=== PATIENT | male | born 1930 | race Caucasian/White ===

== ENCOUNTER 2018-06-18 12:22 | Emergency (ER) | payer MEDICARE, OTHER ==
--- NOTE | 2018-06-18 13:13 | ED Physician Documentation ---
PD HPI ALTERED MENTAL STATUS - Stated complaint Stated Complaint: VISIT PER DR REQUEST - Chief complaint Chief Complaint: General - History obtained from History obtained from: Patient, Family - History of Present Illness Timing - onset: Yesterday (he says he has been feeling okay and had routine blood tests done yesterday in preparation for PMD appt next week. He was called to come to the ER due to abnormalities of his labs. His daughter says the office nurse referenced elevated Creatinine and potassium and low blood count particularly.) Timing - details: Other (unknown progression of the changes, with last blood tests being in January thorugh PMD.) Quality / character: Other (daughter says he does seem to have general fatigue the past month or so.). No: Less responsive Associated symptoms: General weakness. No: Fever, Headache, Dyspnea, Focal weakness Contributing factors: Anticoagulated (due to atrial fib). No: New medication, Recent illness Basline status: Alert and oriented X 3, Ambulatory, Home (lives with his daughter and her ). No: Confused, Disoriented Similar symptoms before: Has not had sx before Recently seen: Not recently seen Review of Systems Constitutional: denies: Fever, Chills Nose: denies: Rhinorrhea / runny nose, Congestion Throat: denies: Sore throat Cardiac: reports: Pedal edema (mild chronically, no recent change). denies: Chest pain / pressure, Palpitations, Calf pain Respiratory: denies: Dyspnea, Cough GI: denies: Abdominal Pain, Vomiting, Diarrhea, Bloody / black stool : reports: Incontinent (at times). denies: Dysuria, Frequency Neurologic: reports: Generalized weakness (over several months). denies: Focal weakness, Numbness, Near syncope Endocrine: reports: Easy bruising / bleeding. denies: Weight loss Immunocompromised: denies: Immunocompromised PD PAST MEDICAL HISTORY - Past Medical History Past Medical History: Yes Cardiovascular: Hypertension, High cholesterol, Atrial fibrillation Respiratory: COPD Endocrine/Autoimmune: HyPOthyroidism GI: None : None Psych: None Musculoskeletal: None Derm: None - Past Surgical History Past Surgical History: Yes - Present Medications Home Medications: Ambulatory Orders Medication Instructions Recorded Confirmed Albuterol 2.5 mg INH Q4H PRN 06/18/18 06/18/18 Apixaban [Eliquis] 5 mg PO 06/18/18 Cyanocobalamin (Vitamin B-12) 06/18/18 [Cyanocobalamin Injection] Fluticasone/Salmeterol 06/18/18 [Fluticasone-Salmeterol 232-14] Folic Acid 06/18/18 Irbesartan/Hydrochlorothiazide 06/18/18 [Irbesartan-Hctz 300-12.5 mg Tb] Levothyroxine [Synthroid] 125 mcg PO QDAC 06/18/18 06/18/18 Metoprolol Succinate/Hctz 1 each PO 06/18/18 [Metoprolol ER-Hctz 50-12.5 mg] Sertraline [Zoloft] 06/18/18 Simvastatin 40 mg PO 06/18/18 Vit B2/Niacin/B-6/B-12/D-Panth [B 06/18/18 Complex Sublingual Liquid] - Allergies Allergies/Adverse Reactions: Allergies Allergy/AdvReac Type Severity Reaction Status Date / Time No Known Drug Allergies Allergy Verified 06/18/18 13:09 - Social History Does the pt smoke?: No Smoking Status: Never smoker Does the pt drink ETOH?: Yes ETOH Use: Wine Does the pt have substance abuse?: No - Immunizations Immunizations are current?: Yes - POLST Patient has POLST: No PD ED PE NORMAL - Vitals Vital signs reviewed: Yes - General General: Alert and oriented X 3, No acute distress, Well developed/nourished - HEENT HEENT: Moist mucous membranes, Pharynx benign - Neck Neck: Supple, no meningeal sign, No adenopathy - Cardiac Cardiac: No murmur. No: RRR (slightly irregular c/w atrial fib. Rate good, to slightly brandyn in 50s/60s.) - Respiratory Respiratory: Clear bilaterally - Abdomen Abdomen: Normal bowel sounds, Soft, Non tender, Non distended - Male Male : Deferred - Rectal Rectal: Other (soft brown stool in vault. Guiac negative. ) - Back Back: No CVA TTP - Derm Derm: Normal color, Warm and dry - Extremities Extremities: No tenderness to palpate, Normal ROM s pain, No calf tenderness / cord, Other (1+ edema in both lower legs.) - Neuro Neuro: Alert and oriented X 3, No motor deficit, Normal speech Results - Vitals Vitals: Vital Signs - 24 hr 06/18/18 06/18/18 12:28 16:42 Temperature 36.4 C L Heart Rate 64 57 L Respiratory 18 20 Rate Blood Pressure 139/47 H 154/76 H O2 Saturation 100 95 Oxygen O2 Source Room air - Labs Labs: Laboratory Tests 06/18/18 06/18/18 06/18/18 14:10 14:10 14:10 WBC 4.0 L RBC 2.70 L 2.71 L Hgb 8.8 L Hct 25.8 L MCV 95.7 H MCH 32.8 H MCHC 34.3 RDW 15.6 H Plt Count 164 MPV 7.9 Reticulocyte % (Auto) 4.00 H Neut # (Auto) 2.4 Lymph # (Auto) 0.9 L Wise # (Auto) 0.4 Eos # (Auto) 0.2 Baso # (Auto) 0.1 Absolute Nucleated RBC 0.00 Nucleated RBC % 0.1 Absolute Retic 0.109 Sodium 135 Potassium 5.0 Chloride 105 Carbon Dioxide 26 Anion Gap 4.0 L BUN 32 H Creatinine 1.4 H Estimated GFR (MDRD) 48 L Glucose 97 Calcium 8.8 Magnesium 2.0 Iron 70 TIBC 307 % Saturation 23 Transferrin 219 Ferritin Total Bilirubin 1.4 H AST 19 ALT 10 Alkaline Phosphatase 79 Total Protein 7.0 Albumin 4.1 Globulin 2.9 Albumin/Globulin Ratio 1.4 Lipase 51 Vitamin B12 Folate TSH Thyroxine (T4) Total T3 06/18/18 06/18/18 14:10 14:10 WBC RBC Hgb Hct MCV MCH MCHC RDW Plt Count MPV Reticulocyte % (Auto) Neut # (Auto) Lymph # (Auto) Wise # (Auto) Eos # (Auto) Baso # (Auto) Absolute Nucleated RBC Nucleated RBC % Absolute Retic Sodium Potassium Chloride Carbon Dioxide Anion Gap BUN Creatinine Estimated GFR (MDRD) Glucose Calcium Magnesium Iron TIBC % Saturation Transferrin Ferritin 213.7 Total Bilirubin AST ALT Alkaline Phosphatase Total Protein Albumin Globulin Albumin/Globulin Ratio Lipase Vitamin B12 204 Folate 44.00 TSH 47.80 H Thyroxine (T4) 4.13 L Total T3 0.45 L PD MEDICAL DECISION MAKING - ED course Complexity details: reviewed results, considered differential (patient's son-in-law able to pull up lab results on his phone, so could see trend of creatinine about 1-1.4 over 6 months. Hgb was 13 in November, 11 in January and now 9. He is guiac negative here. Gave daughter 5 guiac cards to get samples over the next week or so. Has low WBC as well as anemia, so may be marrow suppression. ), d/w patient Departure - Departure Disposition: 01 Home, Self Care Clinical Impression: Elevated serum creatinine Anemia Qualifiers: Anemia type: unspecified type Qualified Code(s): D64.9 - Anemia, unspecified Hypothyroidism Qualifiers: Hypothyroidism type: unspecified Qualified Code(s): E03.9 - Hypothyroidism, unspecified Condition: Stable Record reviewed to determine appropriate education?: Yes Instructions: ED Anemia Type Not Specified, ED Hypothyroidism Follow-Up: ZULEMA MCGRAW [Primary Care Provider] - Comments: You are anemic but not low enough to need transfusion. Your stool test was negative for blood at this time. Repeat the test 4-5 times over the next week or 2 and and bring those to your primary care to have him tested for occult blood. This is to see if there is any concern about losing blood. Otherwise the deficiency can be not making it appropriately. Your B12 and iron levels are good in your bloodstream. The folate test is still pending. Regarding your kidney function, make sure you stay well hydrated and drink lots of fluid through the day. Regarding your thyroid, the elevated TSH would suggest your thyroid dose is insufficient and will need to be increased to a higher amount. For now you could just take 2 of your thyroid tablets daily in the short-term until you see your primary care and they can prescribe a different dose. Follow-up with your primary care next week presumably. Discharge Date/Time: 06/18/18 16:48
[2018-06-18] MEDS: SODIUM CHLORIDE 0.9% 1,000 ML IV ONE (14:15)
[2018-06-18 14:19] LABS: BASOPHILS # (AUTO) 0.1 10^3/uL (0.0-0.1); BASOPHILS % (AUTO) 2.3 %; EOSINOPHILS # (AUTO) 0.2 10^3/uL (0.0-0.7); EOSINOPHILS % (AUTO) 6.2 %; HGB - HEMOGLOBIN 8.8 g/dL (14.0-18.0); LYMPHOCYTES # (AUTO) 0.9 10^3/uL (1.5-3.5); LYMPHOCYTES % (AUTO) 21.7 %; MEAN CORPUSCULAR HEMOGLOBIN 32.8 pg (27.0-31.0); MEAN CORPUSCULAR HGB CONC 34.3 g/dL (32.0-36.0); MEAN CORPUSCULAR VOLUME 95.7 fL (80.0-94.0); MEAN PLATELET VOLUME 7.9 fL (7.4-11.4); MONOCYTES # (AUTO) 0.4 10^3/uL (0.0-1.0); MONOCYTES % (AUTO) 9.2 %; NEUTROPHILS # (AUTO) 2.4 10^3/uL (1.5-6.6); NEUTROPHILS % (AUTO) 60.6 %; PLT - PLATELET COUNT 164 10^3/uL (130-450); RED CELL DISTRIBUTION WIDTH 15.6 % (12.0-15.0)
[2018-06-18 14:24] LABS: MEAN RETIC VALUE 115.1; RED BLOOD COUNT 2.71 10^6/uL (4.70-6.10)
[2018-06-18 14:54] LABS: FERRITIN 213.7 ng/mL (23.9-336.2)
[2018-06-18 15:41] LABS: ALBUMIN 4.1 g/dL (3.2-5.5); ALBUMIN/GLOBULIN RATIO 1.4 (1.0-2.2); BILIRUBIN,TOTAL 1.4 mg/dL (0.2-1.0); CALCIUM 8.8 mg/dL (8.5-10.3); CREATININE 1.4 mg/dL (0.6-1.2)
[2018-06-18 16:29] LABS: T4 (THYROXINE) 4.13 ug/dL (6.09-12.23)
[2018-06-18 16:38] LABS: TOTAL T3 0.45 ng/mL (0.87-1.78)
[2018-06-18 16:43] VITALS: BP 154/76
[2018-06-18 16:56] LABS: THYROID STIMULATING HORMONE 47.8 uIU/mL (0.34-5.60)
== END 2018-06-18 16:48 | disposition home or self-care (01) ==
LOC: ED 12:22
DX: R74.8 Abnormal levels of other serum enzymes (principal); D64.9 Anemia, unspecified; E03.9 Hypothyroidism, unspecified; I10 Essential (primary) hypertension; E78.00 Pure hypercholesterolemia, unspecified
CPT/HCPCS: 36415; 80053; 82607; 82728; 82746; 83540; 83690; 83735; 84436; 84443; 84466; 84480; 85025; 85044; 96360; 99283

== ENCOUNTER 2018-09-14 08:07 | Outpatient (CLI) | payer MEDICARE, OTHER | END 2018-09-14 08:08 | disposition critical access hospital (66) | LOC: EMS 08:07 | PROVIDERS: ATTEND Surgery | DX: R53.1 Weakness (principal); R26.2 Difficulty in walking, not elsewhere classified | CPT/HCPCS: A0425; A0427 ==

== ENCOUNTER 2018-09-14 08:33 | Inpatient (IN) | payer MEDICARE, OTHER ==
--- NOTE | 2018-09-14 08:54 | ED Physician Documentation ---
PD HPI Fall - Stated complaint Stated Complaint: FALL - Chief complaint Chief Complaint: General - History obtained from History obtained from: Patient - History of Present Illness Mechanism of injury: Unknown Fall distance: Sitting position Where injury occurred: Home Timing - onset: Today Injury(ies) location: Left Uppper Extremity Quality of pain: No: Pain, Throbbing Associated symptoms: Amnesia (does not remember the fall itself). No: LOC, AMS Symptoms improve with: Rest Worsens with: Movement, Palpation Contributing factors: Anticoagulated Similar symptoms before: Has not had sx before Recently seen: Not recently seen - Additional information Additional information: 88-year-old male with a history of atrial fibrillation on Eliquis has been found next to his bed this morning with an abrasion to his left forearm. The patient remembers being on the ground but he does not remember the fall itself. He denies any injury to his head he denies any pain to his head or neck. He denies any nausea or vomiting. He does state that he has a poor appetite but he thinks he drinks a fair amount of fluids. He feels mildly weak. He is a resident at [facility]. Review of Systems Constitutional: reports: Fatigue. denies: Fever, Chills Eyes: denies: Decreased vision Ears: denies: Ear pain Nose: denies: Rhinorrhea / runny nose, Congestion Throat: denies: Oral lesions / sores Cardiac: denies: Chest pain / pressure, Palpitations Respiratory: denies: Dyspnea, Cough GI: denies: Abdominal Pain, Nausea, Vomiting, Constipation, Diarrhea : denies: Dysuria, Frequency Skin: denies: Rash Musculoskeletal: reports: Extremity pain. denies: Neck pain, Back pain Neurologic: reports: Generalized weakness. denies: Focal weakness, Numbness PD PAST MEDICAL HISTORY - Past Medical History Cardiovascular: Hypertension, High cholesterol, Atrial fibrillation Respiratory: COPD Endocrine/Autoimmune: HyPOthyroidism GI: None : None Psych: None Musculoskeletal: None Derm: None - Past Surgical History Past Surgical History: Yes - Present Medications Home Medications: Ambulatory Orders Medication Instructions Recorded Confirmed Albuterol 2.5 mg INH Q4H PRN 06/18/18 09/14/18 Apixaban [Eliquis] 5 mg PO DAILY 06/18/18 09/14/18 Folic Acid 1 tab PO DAILY 06/18/18 09/14/18 Irbesartan/Hydrochlorothiazide 300 mg PO DAILY 06/18/18 09/14/18 [Irbesartan-Hctz 300-12.5 mg Tb] Levothyroxine [Synthroid] 125 mcg PO QDAC 06/18/18 09/14/18 Metoprolol Art/Hydrochlorothiaz 1 each PO BID 06/18/18 09/14/18 [Metoprolol ER-Hctz 50-12.5 mg] Sertraline [Zoloft] 1 tab DAILY 06/18/18 09/14/18 Simvastatin 40 mg PO DAILY 06/18/18 09/14/18 Vit B2/Niacin/B-6/B-12/D-Panth [B 1 cap DAILY 06/18/18 09/14/18 Complex Sublingual Liquid] Fluticasone/Salmeterol [Advair 1 puffs INH PRN PRN 09/14/18 09/14/18 500-50 Diskus] Hydrocortisone/Pramoxine 1 applic TOP BID 09/14/18 09/14/18 [Hydrocort-Pramoxine 2.5%-1% cm] - Allergies Allergies/Adverse Reactions: Allergies Allergy/AdvReac Type Severity Reaction Status Date / Time No Known Drug Allergies Allergy Verified 09/14/18 08:43 - Social History Does the pt smoke?: No Smoking Status: Never smoker Does the pt drink ETOH?: Yes Does the pt have substance abuse?: No - Immunizations Immunizations are current?: Yes - POLST Patient has POLST: No PD ED PE NORMAL - Vitals Vital signs reviewed: Yes (normal ) - General General: No acute distress, Well developed/nourished - HEENT HEENT: Atraumatic, PERRL, EOMI - Neck Neck: Supple, no meningeal sign, No bony TTP - Cardiac Cardiac: No murmur, Other (irregularly irregular ) - Respiratory Respiratory: No respiratory distress, Clear bilaterally - Abdomen Abdomen: Soft, Non tender - Back Back: No CVA TTP, No spinal TTP - Derm Derm: Normal color, Warm and dry, No rash - Extremities Extremities: No deformity, No edema, Other (There is a superficial skin tear to the left volar forearm that has abraided mulitple small skin flaps. There is no involvment of deeper structures and the distal n/v is intact. 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, No motor deficit, No sensory deficit, Normal speech Eye Opening: Spontaneous Motor: Obeys Commands Verbal: Oriented GCS Score: 15 - Psych Psych: Normal mood, Normal affect Results - Vitals Vitals: Vital Signs - 24 hr 09/14/18 09/14/18 09/14/18 08:38 10:47 12:03 Temperature 36.3 C L Heart Rate 55 L 85 94 Respiratory 20 20 14 Rate Blood Pressure 111/64 94/47 L O2 Saturation 98 95 95 Oxygen O2 Source Room air - EKG (time done) 0844 Rate: Rate (enter#) (114) Rhythm: Atrial fibrillation Ischemia: ST depression (diffuse) Compare to prior EKG: Old EKG unavailable Computer interpretation: Agree with computer - Labs Labs: Laboratory Tests 09/14/18 09/14/18 09/14/18 10:12 10:12 10:12 WBC 7.9 RBC 2.79 L Hgb 8.9 L Hct 26.1 L MCV 93.7 MCH 32.1 H MCHC 34.2 RDW 13.4 Plt Count 311 MPV 8.1 Neut # (Auto) 6.9 H Lymph # (Auto) 0.4 L Dawes # (Auto) 0.6 Eos # (Auto) 0.0 Baso # (Auto) 0.0 Absolute Nucleated RBC 0.00 Nucleated RBC % 0.0 Sodium 133 L Potassium 4.1 Chloride 103 Carbon Dioxide 18 L Anion Gap 12.0 BUN 99 H* Creatinine 3.9 H Estimated GFR (MDRD) 15 L Glucose 155 H Calcium 8.6 Total Bilirubin 1.1 H AST 29 ALT 25 Alkaline Phosphatase 71 Troponin I < 0.04 Total Protein 6.8 Albumin 3.4 Globulin 3.4 Albumin/Globulin Ratio 1.0 Lipase 26 Urine Color Urine Clarity Urine pH Ur Specific [place] Urine Protein Urine Glucose (UA) Urine Ketones Urine Occult Blood Urine Nitrite Urine Bilirubin Urine Urobilinogen Ur Leukocyte Esterase Ur Microscopic Review Urine Culture Comments 09/14/18 12:35 WBC RBC Hgb Hct MCV MCH MCHC RDW Plt Count MPV Neut # (Auto) Lymph # (Auto) Dawes # (Auto) Eos # (Auto) Baso # (Auto) Absolute Nucleated RBC Nucleated RBC % Sodium Potassium Chloride Carbon Dioxide Anion Gap BUN Creatinine Estimated GFR (MDRD) Glucose Calcium Total Bilirubin AST ALT Alkaline Phosphatase Troponin I Total Protein Albumin Globulin Albumin/Globulin Ratio Lipase Urine Color YELLOW Urine Clarity CLOUDY Urine pH 5.5 Ur Specific [place] 1.025 Urine Protein 100 H Urine Glucose (UA) NEGATIVE Urine Ketones NEGATIVE Urine Occult Blood MODERATE H Urine Nitrite NEGATIVE Urine Bilirubin NEGATIVE Urine Urobilinogen 0.2 (NORMAL) Ur Leukocyte Esterase LARGE H Ur Microscopic Review INDICATED Urine Culture Comments Not Reportable - Rads (name of study) head without Radiology: Prelim report reviewed (Impression: 1. No acute intracranial abnormality is identified. 2 No acute fracture. 3 Parenchymal volume loss and chronic white matter changes.), EMP read indepedently, See rad report Procedures - IVC sono (time) 0902 Bedside IVC sono: IVC measures (cm) (0.92), IVC collapsed c insp (cm) (complete ), Dehydration (est 2 liter deficit) PD MEDICAL DECISION MAKING - ED course Complexity details: reviewed results, re-evaluated patient, considered differential, d/w patient ED course: 88-year-old male with atrial fibrillation on Eliquis has been found at the edge of his bed this morning he does not recall the fall exactly he does not have any evidence of trauma to his head he does have some abrasion to his left forearm and he is found to be significantly dehydrated. He is administered a banana bag intravenously and a CT scan of his head was obtained. His diagnostics indicate significant dehydration with acute kidney injury and urinary tract infection. He has a long-standing anemia this is slightly worse. Departure - Departure Disposition: 66 [facility] DC/Xfer Clinical Impression: Dehydration, ARMIDA (acute kidney injury) Urinary tract infection Qualifiers: Urinary tract infection type: acute cystitis Hematuria presence: without hematuria Qualified Code(s): N30.00 - Acute cystitis without hematuria
[2018-09-14] MEDS ORDERED: FOLIC ACID INJ 1 MG, THIAMINE INJ 100 MG, MAGNESIUM SULFATE 2 GM, MULTIVITAMIN 10 ML in... IV STA ×5 (09:06)
--- NOTE | 2018-09-14 10:18 | CT Report ---
Reason: fall eliquis memory loss Procedure Date: 09/14/2018 Accession Number: [id number] / [id number] Procedure: CT - Head W/O CPT Code: FULL RESULT: EXAM: CT HEAD EXAM DATE: 09/14/2018 09:52 AM. CLINICAL HISTORY: Fall eliquis memory loss. COMPARISON: None. TECHNIQUE: Multiaxial CT images were obtained from the foramen magnum to the vertex. Reformats: Sagittal and coronal. IV contrast: None. In accordance with CT protocol optimization, one or more of the following dose reduction techniques were utilized for this exam: automated exposure control, adjustment of mA and/or KV based on patient size, or use of iterative reconstructive technique. FINDINGS: Parenchyma: No evidence of an acute vascular insult or acute parenchymal hemorrhage. No midline shift. No mass-effect. Parenchymal volume loss and periventricular regions of low attenuation. Extraaxial Spaces: Extra-axial spaces are prominent. No subdural or epidural collections identified. Ventricles: Mildly prominent although symmetric. No hydrocephalus. Sinuses and Orbits: Imaged paranasal sinuses, orbits, and mastoids show no significant abnormality. Bones: No evidence of fracture or calvarial defect. Other: Globes and orbits are unremarkable. Vascular calcifications are noted. IMPRESSION: 1. No acute intracranial abnormality is identified. 2. No acute fracture 3. Parenchymal volume loss and chronic white matter changes. RADIA
[2018-09-14 10:24] LABS: BASOPHILS % (AUTO) 0.3 %; EOSINOPHILS % (AUTO) 0.5 %; HGB - HEMOGLOBIN 8.9 g/dL (14.0-18.0); LYMPHOCYTES # (AUTO) 0.4 10^3/uL (1.5-3.5); MEAN CORPUSCULAR HEMOGLOBIN 32.1 pg (27.0-31.0); MEAN CORPUSCULAR HGB CONC 34.2 g/dL (32.0-36.0); MEAN CORPUSCULAR VOLUME 93.7 fL (80.0-94.0); MEAN PLATELET VOLUME 8.1 fL (7.4-11.4); MONOCYTES # (AUTO) 0.6 10^3/uL (0.0-1.0); MONOCYTES % (AUTO) 7.3 %; NEUTROPHILS # (AUTO) 6.9 10^3/uL (1.5-6.6); NEUTROPHILS % (AUTO) 86.9 %; PLT - PLATELET COUNT 311 10^3/uL (130-450); RED BLOOD COUNT 2.79 10^6/uL (4.70-6.10); RED CELL DISTRIBUTION WIDTH 13.4 % (12.0-15.0); WHITE BLOOD COUNT 7.9 x10^3/uL (4.8-10.8)
[2018-09-14 10:39] LABS: ALBUMIN 3.4 g/dL (3.2-5.5); BILIRUBIN,TOTAL 1.1 mg/dL (0.2-1.0); CALCIUM 8.6 mg/dL (8.5-10.3); CREATININE 3.9 mg/dL (0.6-1.2); TOTAL PROTEIN 6.8 g/dL (6.7-8.2)
[2018-09-14 12:49] LABS: BILIRUBIN,URINE NEGATIVE (NEGATIVE); GLUCOSE, URINE (UA) NEGATIVE (NEGATIVE); KETONES,URINE (UA) NEGATIVE (NEGATIVE); LEUKOCYTE ESTERASE, URINE LARGE (NEGATIVE); NITRITE,URINE NEGATIVE (NEGATIVE); OCCULT BLOOD,URINE MODERATE (NEGATIVE); PH,URINE 5.5 PH (5.0-7.5); PROTEIN,URINE 100 mg/dL (NEGATIVE); UROBILINOGEN,URINE 0.2 (NORMAL) E.U./dL (NORMAL)
[2018-09-14 12:51] LABS: CLARITY,URINE CLOUDY (CLEAR)
[2018-09-14 13:01] LABS: BACTERIA,URINE Few /HPF (None Seen); RBC,URINE 0-5 /HPF (0-5); SQUAMOUS EPITHELIAL CELL,UR RARE Squamous (<= Few)
[2018-09-14] MEDS ORDERED: BACITRACIN OINT TOP ONE (13:22)
[2018-09-14] MEDS ORDERED: ONDANSETRON 4 MG/2 ML VIAL IVP PRN (16:05)
[2018-09-14] MEDS ORDERED: TEMAZEPAM 15 MG CAPSULE PO PRN (16:05)
--- NOTE | 2018-09-14 16:11 | HISTORY & PHYSICAL EXAMINATION ---
Chief Complaint - Chief Complaint Chief Complaint: found down, weakness, diarrhea History of Present Illness - Admitted From Admitted From:: ED - History Obtained From Records Reviewed: yes History obtained from: chart review, [id number], patient Exam Limitations: AMS - History of Present Illness HPI Comment/Other: Bladimir Curtis Sr. is a 88-year-old male with a past medical history of hypertension, hyperlipidemia, hypothyroidism, atrial fibrillation on Eliquis, CHF, hearing loss, and dementia. He has been residing at [facility] assisted living since June of 2018. He has lost between 10 and 20lbs since arriving there despite the staff encouraging him to attend meals and them bringing him his meals to his apartment. He was found next to his bed this morning with an abrasion to his left forearm, so EMS was called and he was brought to the ED. Once in the ED the patient states that he remembers being on the ground, but he does not remember the fall itself. He denies any injury to his head, headaches, neck pain, nausea or vomiting. His hznnhgbs-sa-wro Gwendolyn is present for his H & P exam. She states that she tries to swing by [facility] after work each day and for the past 2-3 days his apartment has been a mess with diarrhea soiled depends in the sink, soiled carpeting, and the patient had been spending more and more time in bed with no motivation, lethargy, chills, and worsening mental status. Labs show a normal WBC count of 7.9, a low H/H of 8.9/26.1, a high neutrophil count, a low sodium of 133, an elevated BUN of 99, an elevated creatinine of 3.9, a bili of 1.1, a normal troponin, with no other lab abnormalities. A urine sample showed acute UTI with the culture pending. On exam, the patient is somewhat confused, a poor historian, had an ill appearance, and had bilateral CVA tenderness with palpation. He was attempting to use the urinal with poor results. He will be admitted inpatient for further treatment of pyelonephritis, treatment of ARMIDA using gentle fluids and a possible PT evaluation for placement. History - Past Medical History Cardiovascular: reports: Congestive heart failure, Hypertension, High cholesterol, Coronary artery disease, Peripheral Vascular Disease, Atrial fibrillation, Murmur, Arrhythmia Respiratory: reports: COPD, Shortness of breath Neuro: reports: Alzhiemer's, Dementia, CVA, Peripheral neuropathy, Tremors Endocrine/Autoimmune: reports: HyPOthyroidism GI: reports: GERD : reports: Benign prostate hypertrophy, Incontinence, Nocturia, Frequency HEENT: reports: Chronic vision loss, Chronic sinusitis, Chronic hearing loss Psych: reports: Depression, Anxiety Musculoskeletal: reports: Osteoarthritis, Osteoporosis Derm: reports: None MRSA Hx?: No - Family & Social History Family History: Mother: , Father: , COPD/Emphysema Living arrangement: Assisted living ([facility]-doing poorly there.) Social History Notes: 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 He had one son, one daughter and after loosing his 3 years ago, moved in with his son. This past June, he moved into [facility] assisted living. He has a smoking history of about 40 years, denies alcohol abuse, but recently would enjoy wine. He denies illicit drug use. He has a POLST on file with his PCP stating his wishes to be DNR with full treatment. - Substance History Use: Uses substance without health or social issues: NONE Abuse: Recurrent use of substance despite neg consequences: NONE Dependence: Experiences withdrawal or developed tolerances: NONE - POLST Patient has POLST: Yes POLST Status: DNR (POLST to be obtained from family.) Meds/Allgy - Home Medications Home Medications: Ambulatory Orders Medication Instructions Recorded Confirmed Apixaban [Eliquis] 5 mg PO DAILY 06/18/18 09/14/18 Folic Acid 1 mg PO DAILY 06/18/18 09/14/18 Simvastatin 40 mg PO QPM 06/18/18 09/14/18 Albuterol Sulfate [Albuterol 2 puffs INH Q6H PRN 09/14/18 09/14/18 Sulfate Hfa] Fluticasone/Salmeterol [Advair 1 puffs INH DAILY 09/14/18 09/14/18 500-50 Diskus] Irbesartan 300 mg PO DAILY 09/14/18 09/14/18 Levothyroxine Sodium 150 mcg PO QDAC 09/14/18 09/14/18 Metoprolol Succinate 50 mg PO BID 09/14/18 09/14/18 Sertraline HCl 25 mg PO DAILY 09/14/18 09/14/18 Vitamin B Complex 1 tab PO DAILY 09/14/18 09/14/18 dilTIAZem HCl [Diltiazem 24Hr Cd] 120 mg PO DAILY 09/14/18 09/14/18 - Allergies Allergies/Adverse Reactions: Allergies Allergy/AdvReac Type Severity Reaction Status Date / Time No Known Drug Allergies Allergy Verified 09/14/18 08:43 Review of Systems - Constitutional Constitutional: reports: Fatigue, Chills, Weakness, Poor appetite, Weight loss (10-20lbs in the past few months.) - Eyes Eyes: reports: Vision loss - Ears, Nose & Throat Ears, Nose & Throat: reports: Hearing loss, Hearing aids, Postnasal drainage, Sore throat - Cardiovascular Cariovascular: reports: Palpitations, Exertional dyspnea, Decr. exercise tolerance - Respiratory Respiratory: reports: Cough, SOB at rest, SOB with exertion - Gastrointestinal Gastrointestinal: reports: Abdominal pain, Diarrhea, Change in bowel habits, Nausea, Vomiting, Bloating, Poor appetite - Genitourinary Genitourinary: reports: Dysuria, Frequency, Incontinence, Nocturia - Musculoskeletal Musculoskeletal: reports: Back pain, Stiffness, Limited range of motion, Joint swelling - Integumentary Integumentary: reports: Dryness - Neurological Neurological: reports: General weakness, Focal weakness, Memory problems, Abnormal gait, Incoordination, Slurred speech - Psychiatric Psychiatric: reports: Depression, Anxiety - Endocrine Endocrine: reports: Intolerance to cold - Hematologic/Lymphatic Hematologic/Lymphatic: reports: Anemia, Recurrent infections - All Other Systems All Other Systems: reports: Reviewed and negative Prior Level of Functionality: Independent in assisted living, uses a walker. Recent falls, weight loss and i llness. Exam - Vital Signs Reviewed Vital Signs: Yes Vital Signs: Vital Signs x48h Temp Pulse Resp BP Pulse Ox 09/14/18 14:51 89 14 100/52 L 97 09/14/18 12:03 94 14 94/47 L 95 09/14/18 10:47 85 20 95 09/14/18 08:38 36.3 C L 55 L 20 111/64 98 - Physical Exam General Appearance: positive: No acute distress, Lethargic Eyes Bilateral: positive: Normal inspection, PERRL, No lid inflammation ENT: positive: Pharynx nml, Dry mucous membranes Neck: positive: Thyroid nml, No JVD, Trachea midline, Lymphadenopathy (R), Lymphadenopathy (L), Stiff neck Respiratory: positive: Chest non-tender, No respiratory distress, Rhonchi Cardiovascular: positive: No gallop, Irregularly irregular, Tachycardia, Systolic murmur, Decreased pulse(s) Peripheral Pulses: positive: 1+ Abdomen: positive: Non-tender, Nml bowel sounds, Guarding Back: positive: Nml inspection, CVA tenderness (R), CVA tenderness (L) Skin: positive: No rash, Warm, Dry, Pallor Extremities: positive: Non-tender, Full ROM, Nml appearance, No pedal edema, Joint swelling Neurologic/Psychiatric: positive: Disoriented to place, Disoriented to time, Weakness, Sensory loss, Slurred/abnml speech, Depressed mood/affect, Other (baseline moderate dementia) Reflexes: Bicep (R): 3+, Bicep (L): 3+ Sepsis Event Note (H) - Evaluation Current Stage of Sepsis: Ruled out Conclusion/Plan - Problem List (1) Pyelonephritis Conclusion/Plan: Patient was found down at [facility] for an unknown amount of time Injury to his left elbow, no head injury, back strain, mid-back tenderness on exam Confusion, fevers, chills, and fatigue for the past several days Witnessed dysuria, nocturia, and dehydration UA shows + infection Plan: Continue IV antibiotics, await final cultures (2) ARMIDA (acute kidney injury) Conclusion/Plan: BUN of 99 Creatinine of 3.9 Baseline creatinine of ~1.4 Plan: IV fluids, treat acute infection, avoid nephrotoxins, NSAIDS (3) Fall Conclusion/Plan: The patient had an unwitnessed fall at his assisted living prior to admission. As per his wgfvfhju-rh-dvj who checks on him almost daily, he has also had recurrent diarrhea, which has made a mess of his apartment. Plan: Fall precautions, PT/OT evaluations for higher level of care. Qualifiers: Encounter type: subsequent encounter Qualified Code(s): W19.XXXD - Unspecified fall, subsequent encounter (4) Acute metabolic encephalopathy Conclusion/Plan: The patient has had increased confusion, isolating behaviors for the past several days. Plan: Monitor mood, fall precautions. (5) Dehydration Conclusion/Plan: Based on labs, showing ARMIDA and the story of the patient being found down. Plan: Start gentle IV fluids, monitor labs. (6) Atrial fibrillation Conclusion/Plan: Takes Eliquis at assisted living Long standing atrial fibrillation Plan: Continue Eliquis, consider telemetry if indicated for hypotension, tachycardia on exam Qualifiers: Atrial fibrillation type: chronic Qualified Code(s): I48.2 - Chronic atrial fibrillation (7) senior living (current) use of anticoagulants Conclusion/Plan: The patient is prescribed Eliquis for his atrial fibrillation. He is anemic on admission, which hopefully due to chronic illness. Plan: Obtain an occult stool daily to evaluate for GI bleeding. Continue Eliquis until positive. (8) Normocytic anemia Conclusion/Plan: The patient is found to have a normal MCV, but H/H were low at 8.9/26.1. He has a pale appearance with recent illness including diarrhea. Plan: Iron studies, occult test stools, monitor labs, continue Eliquis until positive guiacs. (9) COPD (chronic obstructive pulmonary disease) Conclusion/Plan: The patient had been a smoker for greater than 40 years per family. He is prescribed Advair and Qvair at home, which will be continued here in similar forms. He has been on oxygen since admission. Plan: Continue respiratory care, offer oxygen, monitor vital signs. Qualifiers: Chronic bronchitis type: unspecified (10) Dementia Conclusion/Plan: The patient is quite pleasant on exam, but has been exhibiting evidence of dementia such as very poor short term memory, isolated behaviors, depression, poor appetite, weight loss, and loosing track of tasks easily. Imaging on admission show chronic white matter changes consistent with dementia. Plan: Offer Palliative care services, monitor for worsening mood or confusion. Qualifiers: Dementia type: unspecified type Dementia behavioral disturbance: without behavioral disturbance Qualified Code(s): F03.90 - Unspecified dementia without behavioral disturbance (11) Hypothyroidism Conclusion/Plan: The patient has had this disease for several years and takes a plentiful dose of Synthroid of 150 mcg at home daily. He has been lethargic lately, but this may have more to do with acute illness. I have no recent TSH. Plan: Obtain TSH, adjust med as needed. Qualifiers: Hypothyroidism type: unspecified Qualified Code(s): E03.9 - Hypothyroidism, unspecified - Lab Results Lab results reviewed: Yes Fish Bones: 09/15/18 05:46 09/15/18 05:46 - Diagnostic Imaging Results Diagnostic Imaging Results: positive: Final report reviewed Diagnostic Imaging Results Comments: EXAM: CT HEAD EXAM DATE: 09/14/2018 09:52 AM IMPRESSION: 1. No acute intracranial abnormality is identified. 2. No acute fracture 3. Parenchymal volume loss and chronic white matter changes. - EKG Results EKG Interpreted Independently: No Core Measures - Anticipated LOS I expect patient to be DC'd or transferred within 96 hours.: Yes - DVT/VTE - Prophylaxis VTE/DVT Device ordered at admit?: Yes VTE/DVT Prophylaxis med ordered at admit?: Yes - Stroke - Rehab Assessment Rehab services assessment to be ordered?: Yes - AMI - Statin at Admit Aspirin Prescribed on Admit: Yes
[2018-09-14] MEDS: SODIUM CHLORIDE 0.9% 1,000 ML IV SCH (17:50)
[2018-09-14] MEDS: SODIUM CHLORIDE FLUSH 0.9% 10 ML SYRINGE IVP SCH (17:57)
[2018-09-14] MEDS: ACETAMINOPHEN 325 MG TABLET PO PRN (18:32)
[2018-09-14] MEDS: cefTRIAXone 2 GM in SODIUM CHLORIDE 0.9% MINIBAG 100 ML IV SCH (20:05)
[2018-09-14] MEDS ORDERED: NON FORMULARY MED (Simvastatin [Simvastatin] 40 MG) PO SCH (21:00)
[2018-09-14] MEDS: METOPROLOL SUCCINATE 50 MG TABLET PO SCH (21:11)
[2018-09-14] MEDS: ATORVASTATIN 10 MG TABLET PO SCH (21:11)
[2018-09-14] MEDS: FAMOTIDINE 20 MG TABLET PO SCH (21:11)
[2018-09-15] MEDS: SODIUM CHLORIDE FLUSH 0.9% 10 ML SYRINGE IVP SCH ×5 (01:32→23:48)
[2018-09-15] MEDS: SODIUM CHLORIDE 0.9% 1,000 ML IV SCH ×2 (04:21→14:59)
[2018-09-15] MEDS: ACETAMINOPHEN 325 MG TABLET PO PRN ×3 (04:43→17:01)
[2018-09-15 05:55] LABS: BASOPHILS % (AUTO) 0.8 %; EOSINOPHILS # (AUTO) 0.2 10^3/uL (0.0-0.7); EOSINOPHILS % (AUTO) 3.8 %; HGB - HEMOGLOBIN 8.7 g/dL (14.0-18.0); LYMPHOCYTES # (AUTO) 0.5 10^3/uL (1.5-3.5); LYMPHOCYTES % (AUTO) 10.4 %; MEAN CORPUSCULAR HEMOGLOBIN 32.2 pg (27.0-31.0); MEAN CORPUSCULAR HGB CONC 34.2 g/dL (32.0-36.0); MEAN CORPUSCULAR VOLUME 94.2 fL (80.0-94.0); MEAN PLATELET VOLUME 7.9 fL (7.4-11.4); MONOCYTES # (AUTO) 0.4 10^3/uL (0.0-1.0); MONOCYTES % (AUTO) 8.9 %; NEUTROPHILS # (AUTO) 3.8 10^3/uL (1.5-6.6); NEUTROPHILS % (AUTO) 76.1 %; PLT - PLATELET COUNT 268 10^3/uL (130-450); RED CELL DISTRIBUTION WIDTH 13.3 % (12.0-15.0)
[2018-09-15 06:13] LABS: ALBUMIN 2.8 g/dL (3.2-5.5); ALBUMIN/GLOBULIN RATIO 0.9 (1.0-2.2); BILIRUBIN,TOTAL 1.2 mg/dL (0.2-1.0); CALCIUM 8.4 mg/dL (8.5-10.3); CREATININE 2.6 mg/dL (0.6-1.2); MAGNESIUM 2.4 mg/dL (1.7-2.8)
[2018-09-15] MEDS: LEVOTHYROXINE 75 MCG TABLET PO SCH (06:33)
[2018-09-15] MEDS ORDERED: ENOXAPARIN 30 MG/0.3 ML SYRINGE SUBQ SCH (09:00)
[2018-09-15] MEDS: diltiaZEM CD 120 MG CAPSULE PO SCH (09:47)
[2018-09-15] MEDS: FOLIC ACID 1 MG TABLET PO SCH (09:47)
[2018-09-15] MEDS: SERTRALINE 50 MG TABLET PO SCH (09:48)
[2018-09-15] MEDS: METOPROLOL SUCCINATE 50 MG TABLET PO SCH ×2 (09:48→20:26)
[2018-09-15] MEDS: POLYETHYLENE GLYCOL 3350 17 GM PACKET PO SCH (09:51)
[2018-09-15] MEDS: APIXABAN 5 MG TABLET PO SCH (09:51)
[2018-09-15] MEDS: (Vitamin B Complex [Vitamin B Complex] 1 TAB) PO SCH (10:09)
[2018-09-15] MEDS: HYDROcod/ACETAM 5/325 MG TABLET PO PRN ×2 (14:57→20:26)
--- NOTE | 2018-09-15 16:31 | PROVIDER PROGRESS NOTE ---
Subjective - Prog Note Date Prog Note Date: 09/15/18 Prog Note Time: 12:00 - Subjective Pt reports feeling: Improved Subjective: Bladimir has no complaints, but when asked how his breathing is, he admits to some increased efforts. He denies chest pain, nausea, vomiting, a rash, headaches, problems with urination, or a new cough. Current Medications - Current Medications Current Medications: Active Medications: Acetaminophen (Tylenol) 650 mg PO Q4HR PRN Hydrocodone Bitart/Acetaminophen ([place] 5/325) 1 tab PO Q4HR PRN Apixaban (Eliquis) 5 mg PO DAILY MOY Atorvastatin Calcium (Lipitor) 20 mg PO QPM MOY Diltiazem HCl (Cardizem Cd) 120 mg PO DAILY MOY Famotidine (Pepcid) 20 mg PO QPM MOY Folic Acid () 1 mg PO DAILY MOY Ceftriaxone Sodium 2 gm/ (Sodium Chloride) 100 mls @ 200 mls/hr IV Q24H MYO Levothyroxine Sodium (Synthroid) 150 mcg PO QDAC MOY Metoprolol Succinate (Toprol Xl) 50 mg PO BID MOY Ondansetron HCl (Zofran Inj) 4 mg IVP Q6HR PRN (Vitamin B Complex [ Vitamin B Complex] 1 Tab) 1 each PO DAILY MOY Polyethylene Glycol (Miralax) 17 gm PO DAILY MOY Sertraline HCl (Zoloft) 25 mg PO DAILY MOY Temazepam (Restoril) 15 mg PO QPM PRN HOME meds: Apixaban [Eliquis] 5 mg PO DAILY 06/18/18 Folic Acid 1 mg PO DAILY 06/18/18 Simvastatin 40 mg PO QPM 06/18/18 Albuterol Sulfate [Albuterol Sulfate Hfa] 2 puffs INH Q6H PRN 09/14/18 Fluticasone/Salmeterol [Advair 500-50 Diskus] 1 puffs INH DAILY 09/14/18 Irbesartan 300 mg PO DAILY 09/14/18 Levothyroxine Sodium 150 mcg PO QDAC 09/14/18 Metoprolol Succinate 50 mg PO BID 09/14/18 Sertraline HCl 25 mg PO DAILY 09/14/18 Vitamin B Complex 1 tab PO DAILY 09/14/18 dilTIAZem HCl [Diltiazem 24Hr Cd] 120 mg PO DAILY 09/14/18 Objective - Vital Signs/Intake & Output Reviewed Vital Signs: Yes Vital Signs: Vital Signs x48h Temp Pulse Resp BP Pulse Ox 09/15/18 16:00 36.4 C L 86 18 105/46 L 97 09/15/18 09:46 78 122/66 Intake & Output: Intake & Output 09/12/18 09/13/18 09/14/18 09/15/18 23:59 23:59 23:59 23:59 Intake Total 1515.2 3120 Output Total 245 575 Balance 1270.2 2545 - Objective General Appearance: positive: No acute distress, Lethargic Eyes Bilateral: positive: PERRL Eyes: OU Conjunctivae pale ENT: positive: ENT inspection nml, Dry mucous membranes Neck: positive: Thyroid nml, No JVD, Trachea midline Respiratory: positive: Chest non-tender, No respiratory distress, Rhonchi Cardiovascular: positive: Regular rate & rhythm, No gallop, Tachycardia, Systolic murmur Peripheral Pulses: 1+ Radial (R), 1+ Radial (L) Abdomen: positive: Non-tender, Nml bowel sounds Back: positive: Nml inspection, CVA tenderness (R), CVA tenderness (L) Skin: positive: No rash, Warm, Dry, Pallor Extremities: positive: Non-tender, Full ROM, Nml appearance, No pedal edema Neurologic/Psychiatric: positive: Disoriented to time, Weakness, Sensory loss, Slurred/abnml speech, Depressed mood/affect, Other (baseline dementia) Reflexes: Bicep (R): 3+, Bicep (L): 3+ - Lab Results Fish Bones: 09/15/18 05:46 09/15/18 05:46 Other Labs: Lab Results x24hrs 09/15/18 09/15/18 09/15/18 Range/Units 05:46 05:46 05:46 WBC (4.8-10.8) x10^3/uL RBC (4.70-6.10) 10^6/uL Hgb (14.0-18.0) g/dL Hct (42.0-52.0) % MCV (80.0-94.0) fL MCH (27.0-31.0) pg MCHC (32.0-36.0) g/dL RDW (12.0-15.0) % Plt Count (130-450) 10^3/uL MPV (7.4-11.4) fL Neut # (Auto) (1.5-6.6) 10^3/uL Lymph # (Auto) (1.5-3.5) 10^3/uL [place] # (Auto) (0.0-1.0) 10^3/uL Eos # (Auto) (0.0-0.7) 10^3/uL Baso # (Auto) (0.0-0.1) 10^3/uL Absolute Nucleated RBC x10^3/uL Nucleated RBC % /100WBC Sodium 135 (135-145) mmol/L Potassium 3.9 (3.5-5.0) mmol/L Chloride 106 (101-111) mmol/L Carbon Dioxide 20 L (21-32) mmol/L Anion Gap 9.0 (6-13) BUN 82 H* (6-20) mg/dL Creatinine 2.6 H (0.6-1.2) mg/dL Estimated GFR (MDRD) 23 L (>89) Glucose 97 (70-100) mg/dL Lactic Acid 0.9 (0.5-2.2) mmol/L Calcium 8.4 L (8.5-10.3) mg/dL Phosphorus 3.0 (2.5-4.6) mg/dL Magnesium 2.4 (1.7-2.8) mg/dL Total Bilirubin 1.2 H (0.2-1.0) mg/dL AST 19 (10-42) IU/L ALT 20 (10-60) IU/L Alkaline Phosphatase 64 (42-121) IU/L Total Creatine Kinase 38 (22-269) IU/L B-Natriuretic Peptide 727 H (5-100) pg/mL Total Protein 6.0 L (6.7-8.2) g/dL Albumin 2.8 L (3.2-5.5) g/dL Globulin 3.2 (2.1-4.2) g/dL Albumin/Globulin Ratio 0.9 L (1.0-2.2) 09/15/18 Range/Units 05:46 WBC 5.0 (4.8-10.8) x10^3/uL RBC 2.70 L (4.70-6.10) 10^6/uL Hgb 8.7 L (14.0-18.0) g/dL Hct 25.5 L (42.0-52.0) % MCV 94.2 H (80.0-94.0) fL MCH 32.2 H (27.0-31.0) pg MCHC 34.2 (32.0-36.0) g/dL RDW 13.3 (12.0-15.0) % Plt Count 268 (130-450) 10^3/uL MPV 7.9 (7.4-11.4) fL Neut # (Auto) 3.8 (1.5-6.6) 10^3/uL Lymph # (Auto) 0.5 L (1.5-3.5) 10^3/uL [place] # (Auto) 0.4 (0.0-1.0) 10^3/uL Eos # (Auto) 0.2 (0.0-0.7) 10^3/uL Baso # (Auto) 0.0 (0.0-0.1) 10^3/uL Absolute Nucleated RBC 0.00 x10^3/uL Nucleated RBC % 0.0 /100WBC Sodium (135-145) mmol/L Potassium (3.5-5.0) mmol/L Chloride (101-111) mmol/L Carbon Dioxide (21-32) mmol/L Anion Gap (6-13) BUN (6-20) mg/dL Creatinine (0.6-1.2) mg/dL Estimated GFR (MDRD) (>89) Glucose (70-100) mg/dL Lactic Acid (0.5-2.2) mmol/L Calcium (8.5-10.3) mg/dL Phosphorus (2.5-4.6) mg/dL Magnesium (1.7-2.8) mg/dL Total Bilirubin (0.2-1.0) mg/dL AST (10-42) IU/L ALT (10-60) IU/L Alkaline Phosphatase (42-121) IU/L Total Creatine Kinase (22-269) IU/L B-Natriuretic Peptide (5-100) pg/mL Total Protein (6.7-8.2) g/dL Albumin (3.2-5.5) g/dL Globulin (2.1-4.2) g/dL Albumin/Globulin Ratio (1.0-2.2) ABX Reporting Has patient been on IV antibiotics over the past 48 hours?: Yes Sepsis Event Note (H) - Evaluation Current Stage of Sepsis: Ruled out Assessment/Plan - Problem List (1) Pyelonephritis Impression: Patient was found down at [facility] for an unknown amount of time Injury to his left elbow, no head injury, back strain, mid-back tenderness on exam. Head imaging was negative for injury. Confusion, fevers, chills, and fatigue for the past several days Dysuria, nocturia, and dehydration, now improved after fluids. UA shows + infection, final is pending. He is urinating ok. Plan: Continue IV antibiotics, await final cultures and kidney US results. (2) ARMIDA (acute kidney injury) Impression: BUN of 99, now 82. Creatinine of 3.9 on admission, now 2.6. Baseline creatinine of ~1.4. He has been given IV fluids. Plan: IV fluids, treat acute infection, avoid nephrotoxins, NSAIDS (3) Fall Impression: The patient had an unwitnessed fall at his assisted living prior to admission. As per his [id number]-mv-[id number] who checks on him almost daily, he has also had recurrent diarrhea, which has made a mess of his apartment. Plan: Fall precautions, PT/OT evaluations for higher level of care. Qualifiers: Encounter type: subsequent encounter Qualified Code(s): W19.XXXD - Unspecified fall, subsequent encounter (4) Acute metabolic encephalopathy Impression: The patient has had increased confusion, isolating behaviors for the past several days. Slight improvement in his mentation today. Plan: Monitor mood, fall precautions, PT evaluation tomorrow. (5) Dehydration Impression: Based on labs, showing ARMIDA and the story of the patient being found down. Plan: Stop IV fluids for early fluid overload, monitor labs. (6) Atrial fibrillation Impression: Takes Eliquis at [facility] Long standing atrial fibrillation Plan: Continue Eliquis, consider telemetry if indicated for hypotension, tachycardia on exam Qualifiers: Atrial fibrillation type: chronic Qualified Code(s): I48.2 - Chronic atrial fibrillation (7) [employer] (current) use of anticoagulants Impression: The patient is prescribed Eliquis for his atrial fibrillation. He is anemic on admission, which hopefully due to chronic illness. Plan: Obtain an occult stool daily to evaluate for GI bleeding. Continue Eliquis until positive. (8) COPD (chronic obstructive pulmonary disease) Impression: The patient had been a smoker for greater than 40 years per family. He is prescribed Advair and Qvair at home, which will be continued here in similar forms. He has been on oxygen since admission. Today he admits to slight increased work of breathing, so his IV fluids are on hold. Plan: Continue respiratory care, offer oxygen, monitor vital signs. Qualifiers: Chronic bronchitis type: unspecified (9) Normocytic anemia Impression: The patient is found to have a normal MCV, but H/H were low at 8.9/26.1, now 8.7/25.5 with an elevated MCV. He has a pale appearance with recent illness including diarrhea. Plan: Iron studies, occult test stools, monitor labs, continue Eliquis until positive guiacs. (10) Dementia Impression: The patient is quite pleasant on exam, but has been exhibiting evidence of dementia such as very poor short term memory, isolated behaviors, depression, poor appetite, weight loss, and loosing track of tasks easily. Imaging on admission show chronic white matter changes consistent with dementia. Plan: Offer Palliative care services, monitor for worsening mood or confusion. Qualifiers: Dementia type: unspecified type Dementia behavioral disturbance: without behavioral disturbance Qualified Code(s): F03.90 - Unspecified dementia without behavioral disturbance (11) Hypothyroidism Impression: The patient has had this disease for several years and takes a plentiful dose of Synthroid of 150 mcg at home daily. He has been lethargic lately, but this may have more to do with acute illness. TSH today was normal at 3.24. Plan: Continue daily Synthroid. Qualifiers: Hypothyroidism type: unspecified Qualified Code(s): E03.9 - Hypothyroidism, unspecified
[2018-09-15] MEDS: cefTRIAXone 2 GM in SODIUM CHLORIDE 0.9% MINIBAG 100 ML IV SCH (20:25)
[2018-09-15] MEDS: FAMOTIDINE 20 MG TABLET PO SCH (20:26)
[2018-09-15] MEDS: ATORVASTATIN 10 MG TABLET PO SCH (20:26)
--- NOTE | 2018-09-15 23:42 | Ultrasound Report ---
Reason: pyelonephritis, back pain, BPH Procedure Date: 09/15/2018 Accession Number: [id number] / [id number] Procedure: US - Retroperitoneal CPT Code: FULL RESULT: EXAM: RENAL ULTRASOUND EXAM DATE: 09/15/2018 11:04 PM. CLINICAL HISTORY: Pyelonephritis, back pain, BPH. COMPARISON: None. TECHNIQUE: Real-time scanning was performed with static images obtained. FINDINGS: Right Kidney: 10.2 x 6.7 x 6.0 cm. 7 cm cortical cyst. No hydronephrosis or definite shadowing calculus. Left Kidney: 11.5 x 7.0 x 7.0 cm. Severe hydronephrosis and hydroureter. Bladder: Markedly thickened bladder wall. Cowan catheter in the urinary bladder. Ureteral jets not visualized. Other: None. IMPRESSION: Severe left hydronephrosis and hydroureter. Markedly thickened bladder wall. No right hydronephrosis. RADIA
[2018-09-16] MEDS: HYDROcod/ACETAM 5/325 MG TABLET PO PRN (06:12)
[2018-09-16] MEDS: LEVOTHYROXINE 75 MCG TABLET PO SCH (06:12)
--- NOTE | 2018-09-16 07:04 | PROVIDER PROGRESS NOTE ---
Subjective - Prog Note Date Prog Note Date: 09/16/18 Prog Note Time: 07:04 - Subjective Pt reports feeling: Improved Subjective: Bladimir has no complaints to day and is relieved to have his catheter since he was unable to urinate overnight. He denies any new symptoms such as chest pain, chest pressure, shortness of breath, nausea, vomiting, a rash, dizziness or a new cough. Current Medications - Current Medications Current Medications: Active Medications: Acetaminophen (Tylenol) 650 mg PO Q4HR PRN Hydrocodone Bitart/Acetaminophen ([place] 5/325) 1 tab PO Q4HR PRN Apixaban (Eliquis) 5 mg PO DAILY MOY Atorvastatin Calcium (Lipitor) 20 mg PO QPM MOY Diltiazem HCl (Cardizem Cd) 120 mg PO DAILY MOY Famotidine (Pepcid) 20 mg PO QPM MOY Folic Acid () 1 mg PO DAILY MOY Trimethoprim/Sulfamethoxazole (20 ml/ Dextrose) 520 mls @ 346.667 mls/hr IV Q12H MOY Levothyroxine Sodium (Synthroid) 150 mcg PO QDAC MOY Metoprolol Succinate (Toprol Xl) 50 mg PO BID MOY Ondansetron HCl (Zofran Inj) 4 mg IVP Q6HR PRN (Vitamin B Complex [ Vitamin B Complex] 1 Tab) 1 each PO DAILY MOY Polyethylene Glycol (Miralax) 17 gm PO DAILY MOY Sertraline HCl (Zoloft) 25 mg PO DAILY MOY Temazepam (Restoril) 15 mg PO QPM PRN HOME meds: Apixaban [Eliquis] 5 mg PO DAILY 06/18/18 Folic Acid 1 mg PO DAILY 06/18/18 Simvastatin 40 mg PO QPM 06/18/18 Albuterol Sulfate [Albuterol Sulfate Hfa] 2 puffs INH Q6H PRN 09/14/18 Fluticasone/Salmeterol [Advair 500-50 Diskus] 1 puffs INH DAILY 09/14/18 Irbesartan 300 mg PO DAILY 09/14/18 Levothyroxine Sodium 150 mcg PO QDAC 09/14/18 Metoprolol Succinate 50 mg PO BID 09/14/18 Sertraline HCl 25 mg PO DAILY 09/14/18 Vitamin B Complex 1 tab PO DAILY 09/14/18 dilTIAZem HCl [Diltiazem 24Hr Cd] 120 mg PO DAILY 09/14/18 Objective - Vital Signs/Intake & Output Reviewed Vital Signs: Yes Vital Signs: Vital Signs x48h Temp Pulse Resp BP Pulse Ox 09/15/18 23:36 36.2 C L 69 16 97/48 L 96 Intake & Output: Intake & Output 09/13/18 09/14/18 09/15/18 09/16/18 23:59 23:59 23:59 23:59 Intake Total 1515.2 4278.333 150 Output Total 245 1655 450 Balance 1270.2 2623.333 -300 - Objective General Appearance: positive: No acute distress, Alert Eyes Bilateral: positive: PERRL Eyes: OU Conjunctivae pale ENT: positive: Pharynx nml, No signs of dehydration Neck: positive: Thyroid nml, No JVD, Trachea midline Respiratory: positive: Chest non-tender, No respiratory distress, Breath sounds nml Cardiovascular: positive: No gallop, Irregularly irregular, Systolic murmur, Decreased pulse(s) Peripheral Pulses: 1+ Radial (R), 1+ Radial (L) Abdomen: positive: Non-tender, Nml bowel sounds, No distention Back: positive: Nml inspection Skin: positive: No rash, Warm, Dry, Pallor Extremities: positive: Non-tender, Full ROM, Nml appearance, No pedal edema Neurologic/Psychiatric: positive: Disoriented to time, Weakness, Sensory loss, Depressed mood/affect, Other (baseline dementia) Reflexes: Bicep (R): 3+, Bicep (L): 3+ - Lab Results Fish Bones: 09/16/18 07:24 09/16/18 07:24 ABX Reporting Has patient been on IV antibiotics over the past 48 hours?: Yes Sepsis Event Note (H) - Evaluation Current Stage of Sepsis: Ruled out Assessment/Plan - Problem List (1) Pyelonephritis Impression: Patient was found down at [place] for an unknown amount of time, next to his bed with the only reported injury being his left elbow. There was no head injury, back strain, mid-back tenderness on exam. Head imaging was negative for acute injury or bleeding. He has been having increased confusion, fevers, chills, and fatigue for the past several days, leading up to this admission. Dysuria, nocturia, and dehydration, now improved after fluids. UA shows + infection, final culture results show enterococcus faecalis with a few sensitivities. His antibiotics have been changed to TMP/sulfa IV for absorption purposes. He was found to have urinary retention overnight, so an indwelling logan was inserted. Plan: Continue IV antibiotics, continue logan. (2) Urinary retention Impression: Overnight the patient was unable to urinate, so an indwelling logan was placed. Since he has had an improvement in his kidney function, I will start flomax to be continued out patient for improved bladder emptying. Plan: Continue logan, start flomax. (3) ARMIDA (acute kidney injury) Impression: BUN is improved to 60 today. Creatinine of 3.9 on admission, now 1.8. Baseline creatinine of ~1.4. He has been given IV fluids, but due to increased pulmonary congestion, these were stopped late yesterday. Plan: Continue to treat acute infection, avoid nephrotoxins, NSAIDS (4) Fall Impression: The patient had an unwitnessed fall at his assisted living prior to admission. As per his [id number] who checks on him almost daily, he has also had recurrent diarrhea, which has made a mess of his apartment. Plan: Fall precautions, PT/OT evaluations for higher level of care. Qualifiers: Encounter type: subsequent encounter Qualified Code(s): W19.XXXD - Unspecified fall, subsequent encounter (5) Acute metabolic encephalopathy Impression: The patient has had increased confusion, isolating behaviors for the past several days leading up to this admission. He has improved mentation with more alert periods each day. He has not been combative or impulsive. Plan: Monitor mood, fall precautions, PT evaluation still to come. (6) Dehydration Impression: Based on labs, showing ARMIDA and the story of the patient being found down. Kidney function is much improved, and the patient has an indwelling logan since having urinary retention overnight. Plan: Hold IV fluids for early fluid overload, treat acute illness, and routine labs. (7) Atrial fibrillation Impression: Takes Eliquis at assisted living which has been continued here. Long standing atrial fibrillation has been treated with metoprolol and diltiazem, which is continued here with B/P and heart rate parameters. Heart rates today have been 70's, blood pressures a little light at 101/48. Plan: Continue Eliquis, and rate control meds. Qualifiers: Atrial fibrillation type: chronic Qualified Code(s): I48.2 - Chronic atrial fibrillation (8) long-term (current) use of anticoagulants Impression: The patient is prescribed Eliquis for his atrial fibrillation. He is anemic on admission, that is improved today so this may have been from IV fluids. Plan: Obtain an occult stool to evaluate for GI bleeding. Continue Eliquis until positive. (9) COPD (chronic obstructive pulmonary disease) Impression: The patient had been a smoker for greater than 40 years per family. He is prescribed Advair and Qvair at home, which will be continued here in similar forms. He has been on oxygen since admission. Today he no longer complains of increased work of breathing and his IV fluids are still on hold. Plan: Continue respiratory care, offer oxygen, monitor vital signs. Qualifiers: Chronic bronchitis type: unspecified (10) Normocytic anemia Impression: The patient is found to have a normal MCV, but H/H were low at 8.9/26.1, now 8.7/25.5 with an elevated MCV. He has a pale appearance with recent illness including diarrhea. Today, H/H are much improved to 9.3/27.3. Plan: Iron studies, occult test stools, monitor labs, continue Eliquis until positive guiacs. (11) Dementia Impression: The patient is quite pleasant on exam, but has been exhibiting evidence of dementia such as very poor short term memory, isolated behaviors, depression, poor appetite, weight loss, and loosing track of tasks easily. Imaging on admission show chronic white matter changes consistent with dementia. Plan: Offer Palliative care services, monitor for worsening mood or confusion. Qualifiers: Dementia type: unspecified type Dementia behavioral disturbance: without behavioral disturbance Qualified Code(s): F03.90 - Unspecified dementia without behavioral disturbance (12) Hypothyroidism Impression: The patient has had this disease for several years and takes a plentiful dose of Synthroid of 150 mcg at home daily. He has been lethargic lately, but this may have more to do with acute illness. TSH today was normal at 3.24. Plan: Continue daily Synthroid. Qualifiers: Hypothyroidism type: unspecified Qualified Code(s): E03.9 - Hypothyroidism, unspecified (13) Moderate protein-calorie malnutrition Impression: A nutritional consult occurred today; the patient has been steadily loosing weight, at least 3% in the past 3 months. He has had reduced functional capacity and profound weakness, and his appetite has been progressively worse. Plan: Dietitian to follow, encourage PO intake, daily weights.
[2018-09-16 07:42] LABS: BASOPHILS % (AUTO) 0.5 %; EOSINOPHILS # (AUTO) 0.3 10^3/uL (0.0-0.7); HGB - HEMOGLOBIN 9.3 g/dL (14.0-18.0); LYMPHOCYTES # (AUTO) 0.7 10^3/uL (1.5-3.5); LYMPHOCYTES % (AUTO) 10.8 %; MEAN CORPUSCULAR HEMOGLOBIN 31.7 pg (27.0-31.0); MEAN CORPUSCULAR HGB CONC 34.1 g/dL (32.0-36.0); MEAN CORPUSCULAR VOLUME 92.9 fL (80.0-94.0); MONOCYTES # (AUTO) 0.5 10^3/uL (0.0-1.0); MONOCYTES % (AUTO) 8.3 %; NEUTROPHILS % (AUTO) 76.4 %; PLT - PLATELET COUNT 327 10^3/uL (130-450); RED BLOOD COUNT 2.94 10^6/uL (4.70-6.10); RED CELL DISTRIBUTION WIDTH 13.6 % (12.0-15.0); WHITE BLOOD COUNT 6.6 x10^3/uL (4.8-10.8)
[2018-09-16 07:57] LABS: CALCIUM 8.6 mg/dL (8.5-10.3); CREATININE 1.8 mg/dL (0.6-1.2); MAGNESIUM 2.2 mg/dL (1.7-2.8); PHOSPHORUS 2.5 mg/dL (2.5-4.6)
[2018-09-16] MEDS: SERTRALINE 50 MG TABLET PO SCH (09:00)
[2018-09-16] MEDS: SODIUM CHLORIDE FLUSH 0.9% 10 ML SYRINGE IVP SCH ×2 (09:00→16:22)
[2018-09-16] MEDS: POLYETHYLENE GLYCOL 3350 17 GM PACKET PO SCH (09:00)
[2018-09-16] MEDS: FOLIC ACID 1 MG TABLET PO SCH (09:28)
[2018-09-16] MEDS: METOPROLOL SUCCINATE 50 MG TABLET PO SCH ×2 (09:28→22:50)
[2018-09-16] MEDS: diltiaZEM CD 120 MG CAPSULE PO SCH (09:28)
[2018-09-16] MEDS: APIXABAN 5 MG TABLET PO SCH (09:28)
[2018-09-16] MEDS: (Vitamin B Complex [Vitamin B Complex] 1 TAB) PO SCH (09:35)
[2018-09-16] MEDS: SMX/TMP 800MG/160MG 10ML 20 ML in DEXTROSE 5% 500 ML IV SCH (14:14)
[2018-09-16] MEDS: TAMSULOSIN 0.4 MG CAPSULE PO SCH (16:22)
[2018-09-16] MEDS: FAMOTIDINE 20 MG TABLET PO SCH (21:44)
[2018-09-16] MEDS: ATORVASTATIN 10 MG TABLET PO SCH (21:44)
[2018-09-16] MEDS: SENNA 8.6 MG TABLET PO SCH (21:45)
[2018-09-16] MEDS: DOCUSATE SODIUM 250 MG CAPSULE PO SCH (21:45)
[2018-09-17] MEDS: SMX/TMP 800MG/160MG 10ML 20 ML in DEXTROSE 5% 500 ML IV SCH (01:13)
[2018-09-17] MEDS: SODIUM CHLORIDE FLUSH 0.9% 10 ML SYRINGE IVP SCH ×3 (01:13→18:18)
[2018-09-17 06:02] LABS: BASOPHILS % (AUTO) 0.5 %; EOSINOPHILS # (AUTO) 0.1 10^3/uL (0.0-0.7); EOSINOPHILS % (AUTO) 1.1 %; HGB - HEMOGLOBIN 9.2 g/dL (14.0-18.0); LYMPHOCYTES # (AUTO) 1.2 10^3/uL (1.5-3.5); LYMPHOCYTES % (AUTO) 11.9 %; MEAN CORPUSCULAR HEMOGLOBIN 30.9 pg (27.0-31.0); MEAN CORPUSCULAR HGB CONC 32.7 g/dL (32.0-36.0); MEAN CORPUSCULAR VOLUME 94.5 fL (80.0-94.0); MEAN PLATELET VOLUME 8.1 fL (7.4-11.4); MONOCYTES # (AUTO) 0.7 10^3/uL (0.0-1.0); MONOCYTES % (AUTO) 7.3 %; NEUTROPHILS % (AUTO) 79.2 %; PLT - PLATELET COUNT 379 10^3/uL (130-450); RED BLOOD COUNT 2.99 10^6/uL (4.70-6.10); RED CELL DISTRIBUTION WIDTH 13.9 % (12.0-15.0); WHITE BLOOD COUNT 10.1 x10^3/uL (4.8-10.8)
[2018-09-17 06:18] LABS: ALBUMIN 2.9 g/dL (3.2-5.5); ALBUMIN/GLOBULIN RATIO 0.9 (1.0-2.2); BILIRUBIN,TOTAL 0.5 mg/dL (0.2-1.0); CALCIUM 8.2 mg/dL (8.5-10.3); CREATININE 1.6 mg/dL (0.6-1.2); TOTAL PROTEIN 6.3 g/dL (6.7-8.2)
[2018-09-17] MEDS: LEVOTHYROXINE 75 MCG TABLET PO SCH (06:22)
[2018-09-17] MEDS: ALBUTEROL NEB 2.5 MG/3 ML INH PRN (07:20)
[2018-09-17] MEDS: FORMOTEROL FUMARATE NEB 20 MCG/2 ML INH SCH ×2 (07:20→19:40)
[2018-09-17] MEDS: BUDESONIDE 0.5 MG/2 ML NEB INH SCH ×2 (07:21→19:40)
[2018-09-17] MEDS: DOCUSATE SODIUM 250 MG CAPSULE PO SCH (09:20)
[2018-09-17] MEDS: APIXABAN 5 MG TABLET PO SCH (09:42)
[2018-09-17] MEDS: POLYETHYLENE GLYCOL 3350 17 GM PACKET PO SCH (09:42)
[2018-09-17] MEDS: FOLIC ACID 1 MG TABLET PO SCH (09:42)
[2018-09-17] MEDS: diltiaZEM CD 120 MG CAPSULE PO SCH (09:42)
[2018-09-17] MEDS: SERTRALINE 50 MG TABLET PO SCH (09:43)
[2018-09-17] MEDS: SENNA 8.6 MG TABLET PO SCH (09:43)
[2018-09-17] MEDS: TAMSULOSIN 0.4 MG CAPSULE PO SCH (09:43)
[2018-09-17] MEDS: ACETAMINOPHEN 325 MG TABLET PO PRN (10:45)
[2018-09-17] MEDS: (Vitamin B Complex [Vitamin B Complex] 1 TAB) PO SCH (11:05)
[2018-09-17] MEDS: METOPROLOL SUCCINATE 50 MG TABLET PO SCH (11:05)
--- NOTE | 2018-09-17 12:41 | PROVIDER PROGRESS NOTE ---
Subjective - Prog Note Date Prog Note Date: 09/17/18 Prog Note Time: 12:39 (seen earlierx 2) - Subjective Pt reports feeling: No change Subjective: Was reluctant to get OOB this morning,but did get to chair in afternoon On review of record noted 09/15 ultrasound noting severe L hydronephrosis and hydroureter (and thickened bladder wall) Current Medications - Current Medications Current Medications: Active Medications Acetaminophen (Tylenol) 650 mg PO Q4HR PRN PRN Reason: Pain 1 to 4 Last Admin: 09/17/18 10:45 Dose: 650 mg Hydrocodone Bitart/Acetaminophen ([place] 5/325) 1 tab PO Q4HR PRN PRN Reason: Pain 5 to 7 Last Admin: 09/16/18 06:12 Dose: 1 tab Albuterol () 2.5 mg INH RTQ6H PRN PRN Reason: Wheezing Last Admin: 09/17/18 07:20 Dose: 2.5 mg Apixaban (Eliquis) 5 mg PO DAILY [facility] Last Admin: 09/17/18 09:42 Dose: 5 mg Atorvastatin Calcium (Lipitor) 20 mg PO QPM [facility] Last Admin: 09/16/18 21:44 Dose: 20 mg Budesonide (Pulmicort) 0.5 mg INH RTBID [facility] Last Admin: 09/17/18 07:21 Dose: 0.5 mg Diltiazem HCl (Cardizem Cd) 120 mg PO DAILY [facility] Last Admin: 09/17/18 09:42 Dose: 120 mg Docusate Sodium (Colace 250mg Capsule) 250 - 500 mg PO DAILY [facility] Last Admin: 09/17/18 09:20 Dose: 250 mg Famotidine (Pepcid) 20 mg PO QPM [facility] Last Admin: 09/16/18 21:44 Dose: 20 mg Folic Acid () 1 mg PO DAILY [facility] Last Admin: 09/17/18 09:42 Dose: 1 mg Formoterol Fumarate (Perforomist) 20 mcg INH RTBID [facility] Last Admin: 09/17/18 07:20 Dose: 20 mcg Ampicillin Sodium 1 gm/ Sodium (Chloride) 100 mls @ 200 mls/hr IV Q6HR [facility] Levothyroxine Sodium (Synthroid) 150 mcg PO QDAC [facility] Last Admin: 09/17/18 06:22 Dose: 150 mcg Metoprolol Succinate (Toprol Xl) 50 mg PO BID [facility] Last Admin: 09/17/18 11:05 Dose: Not Given Ondansetron HCl (Zofran Inj) 4 mg IVP Q6HR PRN PRN Reason: Nausea / Vomiting (Vitamin B Complex [ Vitamin B Complex] 1 Tab) 1 each PO DAILY [facility] Last Admin: 09/17/18 11:05 Dose: Not Given Polyethylene Glycol (Miralax) 17 gm PO DAILY [facility] Last Admin: 09/17/18 09:42 Dose: 17 gm Senna (Senokot) 8.6 - 17.2 mg PO DAILY [facility] Last Admin: 09/17/18 09:43 Dose: 8.6 mg Sertraline HCl (Zoloft) 25 mg PO DAILY [facility] Last Admin: 09/17/18 09:43 Dose: 25 mg Sodium Chloride (Normal Saline Flush 0.9%) 10 ml IVP PRN PRN PRN Reason: NEEDED PER PROVIDER ORDERS Sodium Chloride (Normal Saline Flush 0.9%) 10 ml IVP 0100,0900,1700 [facility] Last Admin: 09/17/18 11:03 Dose: 10 ml Tamsulosin HCl (Flomax) 0.4 mg PO DAILY [facility] Last Admin: 09/17/18 09:43 Dose: 0.4 mg Temazepam (Restoril) 15 mg PO QPM PRN PRN Reason: Insomnia Apixaban [Eliquis] 5 mg PO DAILY 06/18/18 Folic Acid 1 mg PO DAILY 06/18/18 Simvastatin 40 mg PO QPM 06/18/18 Albuterol Sulfate [Albuterol Sulfate Hfa] 2 puffs INH Q6H PRN 09/14/18 Fluticasone/Salmeterol [Advair 500-50 Diskus] 1 puffs INH DAILY 09/14/18 Irbesartan 300 mg PO DAILY 09/14/18 Levothyroxine Sodium 150 mcg PO QDAC 09/14/18 Metoprolol Succinate 50 mg PO BID 09/14/18 Sertraline HCl 25 mg PO DAILY 09/14/18 Vitamin B Complex 1 tab PO DAILY 09/14/18 dilTIAZem HCl [Diltiazem 24Hr Cd] 120 mg PO DAILY 09/14/18 Objective - Vital Signs/Intake & Output Reviewed Vital Signs: Yes Vital Signs: Vital Signs x48h Temp Pulse Pulse Resp BP Pulse Ox 02/19/19 12:00 37.7 C H 94 26 H 88/55 L 94 09/17/18 08:00 37.7 C H 62 26 H 113/44 L 96 09/17/18 07:25 60 14 Intake & Output: Intake & Output 09/14/18 09/15/18 09/16/18 09/17/18 23:59 23:59 23:59 23:59 Intake Total 1515.2 4278.333 1950 1080 Output Total 245 1655 1300 900 Balance 1270.2 2623.333 650 180 - Objective General Appearance: positive: No acute distress, Other (frail appearing, lying under covers curled up, later seen up in lounge chair/ (per RN up w/ 1 person assist)) ENT: positive: Other (Hard of hearing) Respiratory: positive: Other (Unlabored resps on Room air lying flat, slight inspiratory sonorus sound, no cough) Cardiovascular: positive: Regular rate & rhythm Abdomen: positive: Nml bowel sounds, No distention, Other (Logan draining clear yellow urine). negative: Tenderness Skin: positive: Warm, Dry Extremities: positive: No pedal edema Neurologic/Psychiatric: positive: Oriented x3 - Lab Results Fish Bones: 09/17/18 05:45 09/18/18 06:28 Other Labs: Lab Results x24hrs 09/17/18 09/17/18 09/17/18 Range/Units 05:45 05:45 05:45 WBC 10.1 (4.8-10.8) x10^3/uL RBC 2.99 L (4.70-6.10) 10^6/uL Hgb 9.2 L (14.0-18.0) g/dL Hct 28.3 L (42.0-52.0) % MCV 94.5 H (80.0-94.0) fL MCH 30.9 (27.0-31.0) pg MCHC 32.7 (32.0-36.0) g/dL RDW 13.9 (12.0-15.0) % Plt Count 379 (130-450) 10^3/uL MPV 8.1 (7.4-11.4) fL Neut # (Auto) 8.0 H (1.5-6.6) 10^3/uL Lymph # (Auto) 1.2 L (1.5-3.5) 10^3/uL R[place]els # (Auto) 0.7 (0.0-1.0) 10^3/uL Eos # (Auto) 0.1 (0.0-0.7) 10^3/uL Baso # (Auto) 0.0 (0.0-0.1) 10^3/uL Absolute Nucleated RBC 0.00 x10^3/uL Nucleated RBC % 0.0 /100WBC Sodium 132 L (135-145) mmol/L Potassium 4.3 (3.5-5.0) mmol/L Chloride 103 (101-111) mmol/L Carbon Dioxide 20 L (21-32) mmol/L Anion Gap 9.0 (6-13) BUN 48 H (6-20) mg/dL Creatinine 1.6 H (0.6-1.2) mg/dL Estimated GFR (MDRD) 41 L (>89) Glucose 139 H (70-100) mg/dL Calcium 8.2 L (8.5-10.3) mg/dL Total Bilirubin 0.5 (0.2-1.0) mg/dL AST 24 (10-42) IU/L ALT 20 (10-60) IU/L Alkaline Phosphatase 74 (42-121) IU/L B-Natriuretic Peptide 485 H (5-100) pg/mL Total Protein 6.3 L (6.7-8.2) g/dL Albumin 2.9 L (3.2-5.5) g/dL Globulin 3.4 (2.1-4.2) g/dL Albumin/Globulin Ratio 0.9 L (1.0-2.2) Sepsis Event Note (H) - Evaluation Current Stage of Sepsis: Ruled out Assessment/Plan - Problem List (1) Enterococcus UTI Impression: (1)ARMIDA (acute kidney injury) Impression: Progressively improving BUN/Cr 99/3.9>>82/2.6>>60/1.8>>48/1.6 Possibly combined/multifactorial;- prerenal (GI losses/diarrhea at [place]) and was on ARB (irbesartan) AND osbstructive with Left severe hydronephrosis on 09/15 u/s + response to volume repletion ( IVF d/c'd 09/15 late due to pulm congestion per record) AND Logan placement Bun//Cr close to baseline now (1.6 today, was 1.02 June 2018) Recheck in am; no NSAids or other nephrotoxins (Amp less likely to affect BuN/Cr than bactrim as well but has tolerated well Leave logan in place (just started Flomax); continue to hold ARB (on irbesartan 300 mg/day at home; 2) Urinary retention Impression: With Left hydronephrosis/ left hydroureter 09/15 U/S Logan placed pm of 09/16 for retention ~ 1000cc. Continue logan/ trial removal end of week (at [facility]) continue Flomax (3)Enterococcal UTI Impression: Day 3 antibiotics Since is ampicillin sensitive enteroccoccus, will change from Bactrim to amp change to amoxicillin on d/c (10 days) (ideally no logan w/ enterococcus BUT w/ retention and hydronephrosis, must leave in Started flomax 09/17 09/16 Patient was found down at [place] for an unknown amount of time, next to his bed with the only reported injury being his left elbow. There was no head injury, back strain, mid-back tenderness on exam. Head imaging was negative for acute injury or bleeding. He has been having increased confusion, fevers, chills, and fatigue for the past several days, leading up to this admission. Dysuria, nocturia, and dehydration, now improved after fluids. UA shows + infection, final culture results show enterococcus faecalis with a few sensitivities. His antibiotics have been changed to TMP/sulfa IV for absorption purposes. He was found to have urinary retention overnight, so an indwelling logan was inserted. Plan: Continue IV antibiotics, continue logan. (4) Fall Impression: Unwitnesed fall at [facility] (cause of admit) Progressive weakness/ deconditioning, less motivation to be out of bed at [place], ? diarrhea at [place] Plan: Fall precautions, PT/OT evaluations for higher level of care>> SNF. Qualifiers: Encounter type: subsequent encounter Qualified Code(s): W19.XXXD - Unspecified fall, subsequent encounter (5) Acute metabolic encephalopathy Impression: related to volume depletion /much impoved (6) volume depletion Impression: Resolved with IVF first few days of admission (IVF d/c'd 2/17 due to? pulm congestion Echo ; normal EF, mod MR, pHTN (7) Atrial fibrillation on Eliquis Impression: Rate controlled (is on BB AND CCB (metop 50 bidand dilt 120) On Eliquis for Afib stroke prevention. HR 60's, BP running close to 100 Given lethargy (which has improved w/ volume repletion/ will consider reducing dose of one of these agents)s continued here with B/P and heart rate parameters. >>>> RNs have held metoprollol last 2 doses; will reduce metoprolol to 25 mg bid Anemia stable (Markedly elevated BUN on admit does not appear c/w bleed/ H/H even increaseing w/ volume repletion/dilution Hemocult ordered / still pending Atrial fibrillation type: chronic Qualified Code(s): I48.2 - Chronic atrial fibrillation 8 ) Hypertension on Irbesartan 300 at home SBP ~ 100 on BB and CCB for afib. BP leaves no room for ARB, (and held for ARMIDA) Hold Irbesartan.; as per #7 reducing BB dose, (9) COPD (chronic obstructive pulmonary disease) Impression: 40 yrs tobacco on Advair/Qvar at home on [facility] formulary On at admit/ on Room Air now w/ adequate Sa02 Qualifiers: Chronic bronchitis type: unspecified (10) Normocytic anemia Impression: As above, H/H stable (and even improved w/ volume repletion) No s/s of active bleeding Iron studies in May (Ferritin 213, (11) Dementia Impression: The patient is quite pleasant on exam, but has been exhibiting evidence of dementia such as very poor short term memory, isolated behaviors, depression, poor appetite, weight loss, and loosing track of tasks easily. Imaging on admission show chronic white matter changes consistent with dementia. Plan: Offer Palliative care services, monitor for worsening mood or confusion. Qualifiers: Dementia type: unspecified type Dementia behavioral disturbance: without behavioral disturbance Qualified Code(s): F03.90 - Unspecified dementia without behavioral disturbance (12) Hypothyroidism Impression: Stable on home levothyroxine 150mcg daily, TSH here 3.24/ nl Qualifiers: Hypothyroidism type: unspecified Qualified Code(s): E03.9 - Hypothyroidism, unspecified (13) Moderate protein-calorie malnutrition Impression: 3% wt loss in ~ 3 mos -reduced functional capacity and profound weakness, and appetite progressively worse. nutritional consult 09/16 Plan: Dietitian to follow, encourage PO intake, daily weights. Will check if supplements ordered
[2018-09-17] MEDS: AMPICILLIN 1 GM in SODIUM CHLORIDE 0.9% MINIBAG 100 ML IV SCH ×2 (12:58→18:18)
[2018-09-17] MEDS ORDERED: BISACODYL 10 MG SUPP PR ONE (17:49)
[2018-09-17] MEDS: SODIUM CHLORIDE FLUSH 0.9% 10 ML SYRINGE IVP PRN (18:26)
[2018-09-17] MEDS: ATORVASTATIN 10 MG TABLET PO SCH (21:00)
[2018-09-17] MEDS ORDERED: METOPROLOL SUCCINATE 50 MG TABLET PO SCH (21:00)
[2018-09-17] MEDS: FAMOTIDINE 20 MG TABLET PO SCH (21:01)
[2018-09-18] MEDS: AMPICILLIN 1 GM in SODIUM CHLORIDE 0.9% MINIBAG 100 ML IV SCH ×4 (00:12→18:29)
[2018-09-18] MEDS: SODIUM CHLORIDE FLUSH 0.9% 10 ML SYRINGE IVP SCH ×3 (00:17→17:03)
[2018-09-18] MEDS: SODIUM CHLORIDE FLUSH 0.9% 10 ML SYRINGE IVP PRN ×2 (06:15→10:19)
[2018-09-18] MEDS: LEVOTHYROXINE 75 MCG TABLET PO SCH (06:17)
[2018-09-18 06:49] LABS: CALCIUM 8.4 mg/dL (8.5-10.3); CREATININE 1.7 mg/dL (0.6-1.2)
[2018-09-18] MEDS ORDERED: SODIUM CHLORIDE 0.9% 1,000 ML IV SCH (07:00)
[2018-09-18] MEDS: BUDESONIDE 0.5 MG/2 ML NEB INH SCH ×2 (07:51→20:34)
[2018-09-18] MEDS: FORMOTEROL FUMARATE NEB 20 MCG/2 ML INH SCH ×2 (07:51→20:34)
--- NOTE | 2018-09-18 08:47 | Discharge Plan ---
"Discharge Plan for SNF / [facility] - Discharge Plan And Transition Orders Disposition: 03 SNF DC/Xfer Condition: Stable Allergies and Adverse Reactions: Allergies Allergy/AdvReac Type Severity Reaction Status Date / Time No Known Drug Allergies Allergy Verified 09/14/18 08:43 - SNF / [facility] Transition Orders Admit to (Facility): [facility] Discharge Diagnosis: -Fall at [place] -Acute Kidney Injury, related to volume depletion, UTI, urinary retention Admit BUN/cr 99/3.9 Discharge 37/1.5 (baseline Cr 1.02 Jun 2019 - Enterococcal UTI on Amoxacillin 500 mg bid on discharge Consider recheck urine culture at end of treatment -Urinary retention related to BPH ; started Flomax 3 days ago; Trial logan removal ~ weekend of 09/21/18 -Atrial Fibrillation on Eliquis for stroke prevention ; For rate control was on diltiazem CD 120mg/day AND metoprolol succinate 50 bid Have needed to reduce to only metoprolol succinate 50 bid; (On both agents BP over controlled) Check manual blood pressures; with afib, dynamap tends to read inaccurately low - Weakness, deconditioning; PT/OT Unwitnessed Fall at [place] before admission; -Hypothyroidism ; continues home regimen, normal TSH - Hypertension; was on irbesartan, cardizem and metoprolol succinate ARB stopped due to ARMIDA, (and blood pressure does not allow) Continues only on metoprolol -Protein calorie malnutrition, Enusre plus bid -COPD; stable; continues home regimen - Normocytic anemia no s/s of active bleeding H/H stable 9.2/28.3 Medicare Certification Statement: I certify that Post Hospital fpc care is medically necessary on a continuing basis for any of the conditions for which she/he is receiving care during hospitalization. Notify PCP of admission and forward orders to primary provider for signature. Weight on admission and: Weekly Other Notification Orders: Call PCP immediately if patient develops dyspnea, chest pain/tightness or edema. House Bowel Program: Yes Additional Bowel Program Orders: If no BM after 2 days, nurse may give M.O.M. 30ml PO PRN and/or ducolax Supp 1 VA and/or SHARRI 250mg P.O., and/or senna 1-2 tabs PO. On day 3 nurse may give repeat above order until residents constipation is resolved. Annual Influenza Vaccine (between Mar 30 and October 27): Yes Two-step PPD per [facility] [phone] or approved exception documents: Yes Treatments & Other Orders: PT/ OT to maximize functional status,. Out of bed to chair TID for meals (at least). Logan care. Trial Logan removal ~ 5 days (on Flomax) / urinary retention on admit. Ensure Plus or similar bid. Check blood pressures manually as machine blood pressure tends to UNDER read his systolic due to atrial fibrillation Oxygen Orders: none needed Lab Tests or X-ray Orders: Recheck BMP early next week , assess renal function (Cr 1.5 on discharge). consider recheck urine culture after completion of antibiotics, Medication Orders: PLEASE REFER TO THE DISCHARGE MEDICATION LIST. Insulin Orders?: No - Medications New Prescriptions: Amoxicillin 500 mg PO BID #12 capsule Tamsulosin [Flomax] 0.4 mg PO DAILY #30 capsule - Diet Texture: Regular Liquids: Thin Supplements: Calorie supplement (e.g Ensure + or Boost BID) May have monthly special meal: Yes - Therapies | Activity Therapy: Evaluation | Treat if indicated: PT, OT Rehabilitation Potential: Maximize functional status, Return to independent living ((return to [place] IF possible, was not thriving there, (? if urinary tract infection contributed, )) Activity: up with assist, walker Weight Bearing: Full Weight Assistance Devices: Walker"
[2018-09-18] MEDS: APIXABAN 5 MG TABLET PO SCH (08:56)
[2018-09-18] MEDS: SENNA 8.6 MG TABLET PO SCH (08:56)
[2018-09-18] MEDS: DOCUSATE SODIUM 250 MG CAPSULE PO SCH (08:57)
[2018-09-18] MEDS: SERTRALINE 50 MG TABLET PO SCH (08:57)
[2018-09-18] MEDS: FOLIC ACID 1 MG TABLET PO SCH (08:57)
[2018-09-18] MEDS: TAMSULOSIN 0.4 MG CAPSULE PO SCH (08:58)
[2018-09-18] MEDS: POLYETHYLENE GLYCOL 3350 17 GM PACKET PO SCH (08:58)
[2018-09-18] MEDS ORDERED: METOPROLOL SUCCINATE 50 MG TABLET PO SCH (09:00)
[2018-09-18] MEDS: (Vitamin B Complex [Vitamin B Complex] 1 TAB) PO SCH (09:00)
--- NOTE | 2018-09-18 12:13 | PROVIDER PROGRESS NOTE ---
Subjective - Prog Note Date Prog Note Date: 09/18/18 Prog Note Time: 12:11 (seen early in am) - Subjective Subjective: " I'm uptown" (meaning he's feeling good) no new complaints "Can I take a nap before I get up to the chair" Current Medications - Current Medications Current Medications: Active Medications Acetaminophen (Tylenol) 650 mg PO Q4HR PRN PRN Reason: Pain 1 to 4 Last Admin: 09/17/18 10:45 Dose: 650 mg Hydrocodone Bitart/Acetaminophen ([place] 5/325) 1 tab PO Q4HR PRN PRN Reason: Pain 5 to 7 Last Admin: 09/16/18 06:12 Dose: 1 tab Albuterol () 2.5 mg INH RTQ6H PRN PRN Reason: Wheezing Last Admin: 09/17/18 07:20 Dose: 2.5 mg Apixaban (Eliquis) 5 mg PO DAILY [facility] Last Admin: 09/18/18 08:56 Dose: 5 mg Atorvastatin Calcium (Lipitor) 20 mg PO QPM MOY Last Admin: 09/17/18 21:00 Dose: 20 mg Budesonide (Pulmicort) 0.5 mg INH RTBID MOY Last Admin: 09/18/18 07:51 Dose: 0.5 mg Docusate Sodium (Colace 250mg Capsule) 250 - 500 mg PO DAILY MOY Last Admin: 09/18/18 08:57 Dose: 250 mg Folic Acid () 1 mg PO DAILY [facility] Last Admin: 09/18/18 08:57 Dose: 1 mg Formoterol Fumarate (Perforomist) 20 mcg INH RTBID MOY Last Admin: 09/18/18 07:51 Dose: 20 mcg Ampicillin Sodium 1 gm/ Sodium (Chloride) 100 mls @ 200 mls/hr IV Q6HR MOY Last Admin: 09/18/18 12:07 Dose: 200 mls/hr Sodium Chloride (Normal Saline 0.9%) 1,000 mls @ 100 mls/hr IV .Q10H [facility] Last Admin: 09/18/18 06:49 Dose: 100 mls/hr Levothyroxine Sodium (Synthroid) 150 mcg PO QDAC [facility] Last Admin: 09/18/18 06:17 Dose: 150 mcg Metoprolol Succinate (Toprol Xl) 25 mg PO BID MOY Last Admin: 09/18/18 10:18 Dose: 25 mg Ondansetron HCl (Zofran Inj) 4 mg IVP Q6HR PRN PRN Reason: Nausea / Vomiting (Vitamin B Complex [ Vitamin B Complex] 1 Tab) 1 each PO DAILY [facility] Last Admin: 09/18/18 09:00 Dose: Not Given Polyethylene Glycol (Miralax) 17 gm PO DAILY [facility] Last Admin: 09/18/18 08:58 Dose: 17 gm Senna (Senokot) 8.6 - 17.2 mg PO DAILY [facility] Last Admin: 09/18/18 08:56 Dose: 8.6 mg Sertraline HCl (Zoloft) 25 mg PO DAILY [facility] Last Admin: 09/18/18 08:57 Dose: 25 mg Sodium Chloride (Normal Saline Flush 0.9%) 10 ml IVP PRN PRN PRN Reason: NEEDED PER PROVIDER ORDERS Last Admin: 09/18/18 10:19 Dose: 10 ml Sodium Chloride (Normal Saline Flush 0.9%) 10 ml IVP 0100,0900,1700 [facility] Last Admin: 09/18/18 10:20 Dose: Not Given Tamsulosin HCl (Flomax) 0.4 mg PO DAILY [facility] Last Admin: 09/18/18 08:58 Dose: 0.4 mg Temazepam (Restoril) 15 mg PO QPM PRN PRN Reason: Insomnia Apixaban [Eliquis] 5 mg PO DAILY 06/18/18 Folic Acid 1 mg PO DAILY 06/18/18 Simvastatin 40 mg PO QPM 06/18/18 Albuterol Sulfate [Albuterol Sulfate Hfa] 2 puffs INH Q6H PRN 09/14/18 Fluticasone/Salmeterol [Advair 500-50 Diskus] 1 puffs INH DAILY 09/14/18 Irbesartan 300 mg PO DAILY 09/14/18 Levothyroxine Sodium 150 mcg PO QDAC 09/14/18 Metoprolol Succinate 50 mg PO BID 09/14/18 Sertraline HCl 25 mg PO DAILY 09/14/18 Vitamin B Complex 1 tab PO DAILY 09/14/18 dilTIAZem HCl [Diltiazem 24Hr Cd] 120 mg PO DAILY 09/14/18 Objective - Vital Signs/Intake & Output Reviewed Vital Signs: Yes Vital Signs: Vital Signs x48h Temp Pulse Pulse Resp BP Pulse Ox 09/18/18 08:00 36.7 C 55 L 24 111/45 L 97 09/18/18 07:53 93 18 Intake & Output: Intake & Output 09/15/18 09/16/18 09/17/18 09/18/18 23:59 23:59 23:59 23:59 Intake Total 4278.333 1950 1380 440 Output Total 1655 1300 1125 675 Balance 2623.333 650 255 -235 - Objective General Appearance: positive: No acute distress, Other (Patient sitting up in bed eating breakfast (waffles, scrambled eggs"" I cant eat all this Generally frail appearing, but animated today, Seen up in chair x 2 today (resisted up for dinner....but did get up)) Eyes Bilateral: positive: Other (wearing glasses) Respiratory: positive: No respiratory distress, Breath sounds nml (unlabored res ps on Room air) Cardiovascular: positive: No murmur (rate ~ 100 this morning, BP improving w/ IVF), Irregularly irregular Abdomen: positive: Nml bowel sounds, No distention. negative: Tenderness (Logan draining clear yellow urine/ adequate volum;e) Skin: positive: Warm, Dry Extremities: negative: Pedal edema Neurologic/Psychiatric: positive: Oriented x3 - Lab Results Fish Bones: 09/17/18 05:45 09/19/18 05:55 Other Labs: Lab Results x24hrs 09/18/18 Range/Units 06:28 Sodium 136 (135-145) mmol/L Potassium 4.8 (3.5-5.0) mmol/L Chloride 106 (101-111) mmol/L Carbon Dioxide 23 (21-32) mmol/L Anion Gap 7.0 (6-13) BUN 42 H (6-20) mg/dL Creatinine 1.7 H (0.6-1.2) mg/dL Estimated GFR (MDRD) 38 L (>89) Glucose 119 H (70-100) mg/dL Calcium 8.4 L (8.5-10.3) mg/dL Sepsis Event Note (H) - Evaluation Current Stage of Sepsis: Ruled out Assessment/Plan - Problem List (1) Enterococcus UTI Impression: (1) Fall Impression: Unwitnesed fall at [facility] (cause of admit) Progressive weakness/ deconditioning, less motivation to be out of bed at [facility], ? diarrhea at [facility] Has had PT/OT here, OOB to chair for meals, [place]umo on D/c postponed d/c to [facility] for SNF/PT/ rehab fo 09/19 rather than todayto allow titration/ reeval appropriate metoprolol/ cardizem doses for rate control and without overcontrol of BP and giving additonal IVF today )see below) ? if some of his lethargy (which has improved w/ volume repletion/ is related to overcontrolled HR and BP on CCB, BB, AND ARB at homeeart rate parameters. 2) ARMIDA (acute kidney injury) Impression: Progressively improved; BUN/Cr 99/3.9>>82/2.6>>60/1.8>>48/1.6 on 09/17 (Was 1.02 Jun 2018) Possibly multifactorial;- prerenal (GI losses/diarrhea at [facility]) and was on ARB (irbesartan) AND obstructive with Left severe hydronephrosis on 09/15 u/s + response to volume repletion ( IVF d/c'd 09/15 late due to pulm congestion per record) AND Logan placement Cr 1.7 today (IVF had been stopped on 09/15 due to ? volume overload, (Echo with normal EF, mod Plan; will give 1 more liter IVF, encourage PO no NSAids or other nephrotoxins (Amp less likely to affect BuN/Cr than bactrim as well but has tolerated well Leave logan in place (just started Flomax); continue to hold ARB (on irbesartan 300 mg/day at home; 3) Urinary retention Impression: With Left hydronephrosis/ left hydroureter 09/15 U/S Logan placed pm of 09/16 for retention ~ 1000cc. Continue logan/ trial removal end of week (at [facility]) continue Flomax (4)Enterococcal UTI Impression: Day 5 antibiotics Since is ampicillin sensitive enteroccoccus, changed from Bactrim to ampicillin on 09/17 change to amoxicillin on d/c (10 days) (ideally no logan w/ enterococcus BUT w/ retention and hydronephrosis, must leave in Started flomax 09/17 (5) Atrial fibrillation on Eliquis for stroke prevention Impression: Rate controlled Was on BOTH beta brayan and calcium channel brayan preadmit (50 bid metoprolol, and Dilt 120) chief of staff has held occas doses of metoprolol due tosBp ~ 100 or 90's HR 90's 09/17; suspect still some volume depletion given BUN still elevated and Cr sl up today (and IVF stopped 09/15) Will gently hydrate today , hold diltiazem and evaluate rate control on just metoprolol, On reduced metoprolol 25 mg this am, HR this afternoon ~ 98, BP 114/56 resume 50 mg bid (giving 50 mg now), and reeval in am; november d/c JUST on metoprolol 50 bid, no CCB , no ARB, and encourage PO On Eliquis for Afib stroke prevention. 5) Acute metabolic encephalopathy Impression: related to volume depletion /much impoved (6) volume depletion Impression: Partially tx'd on admit, but (IVF d/c'd 09/15 due to? pulm congestion Echo ; normal EF, mild to mod MR, pHTN fied Code(s): I48.2 - Chronic atrial fibrillation 8 ) Hypertension on Irbesartan 300 at home, and BB, and CCB SBP ~ 100 on BB AND CCB for afib. BP leaves no room for ARB, (and held for ARMIDA) Hold Irbesartan.; as per #7 reducing BB dose,holding CCB (9) COPD (chronic obstructive pulmonary disease) Impression: 40 yrs tobacco on Advair/Qvar at home on [facility] formulary On 02 at admit/ on Room Air now w/ adequate Sa02 Resume home inhalers on dc (10) Normocytic anemia Impression: As above, H/H stable (and even improved w/ volume repletion) No s/s of active bleeding Iron studies in May (Ferritin 213, (11) Dementia/ ? Frailty syndrome Impression: Daughter confimrs symptoms of at least early dementia; ; poor STM, isolating behaviors, depression, poor appetite, weight loss, and loosing track of tasks easily. Imaging on admission show chronic white matter changes consistent with dementia. (12) Hypothyroidism Impression: Stable on home levothyroxine 150mcg daily, TSH here 3.24/ nl (13) Moderate protein-calorie malnutrition Impression: 3% wt loss in ~ 3 mos -reduced functional capacity and profound weakness, and appetite progressively worse. nutritional consult 2/18 Plan: Dietitian to follow, encourage PO intake, daily weights. Will check if supplements ordered
[2018-09-18] MEDS ORDERED: METOPROLOL TARTRATE 50 MG TABLET PO ONE (16:59)
[2018-09-18] MEDS: SODIUM CHLORIDE 0.9% 1,000 ML IV SCH ×2 (17:19→20:59)
[2018-09-18] MEDS: ALBUTEROL NEB 2.5 MG/3 ML INH PRN (20:34)
[2018-09-18] MEDS: ATORVASTATIN 10 MG TABLET PO SCH (21:00)
[2018-09-19] MEDS: AMPICILLIN 1 GM in SODIUM CHLORIDE 0.9% MINIBAG 100 ML IV SCH ×2 (00:53→06:07)
[2018-09-19] MEDS: SODIUM CHLORIDE FLUSH 0.9% 10 ML SYRINGE IVP SCH ×2 (00:54→09:20)
[2018-09-19 06:04] LABS: CALCIUM 8.3 mg/dL (8.5-10.3); CREATININE 1.5 mg/dL (0.6-1.2)
[2018-09-19] MEDS: LEVOTHYROXINE 75 MCG TABLET PO SCH (06:10)
[2018-09-19] MEDS: ALBUTEROL NEB 2.5 MG/3 ML INH PRN (07:04)
[2018-09-19] MEDS: FORMOTEROL FUMARATE NEB 20 MCG/2 ML INH SCH (07:04)
[2018-09-19] MEDS: BUDESONIDE 0.5 MG/2 ML NEB INH SCH (07:05)
[2018-09-19 08:52] VITALS: BP 112/64
[2018-09-19] MEDS: SENNA 8.6 MG TABLET PO SCH (09:18)
[2018-09-19] MEDS: SERTRALINE 50 MG TABLET PO SCH (09:18)
[2018-09-19] MEDS: TAMSULOSIN 0.4 MG CAPSULE PO SCH (09:18)
[2018-09-19] MEDS: POLYETHYLENE GLYCOL 3350 17 GM PACKET PO SCH (09:18)
[2018-09-19] MEDS: FOLIC ACID 1 MG TABLET PO SCH (09:18)
[2018-09-19] MEDS: DOCUSATE SODIUM 250 MG CAPSULE PO SCH (09:19)
[2018-09-19] MEDS: APIXABAN 5 MG TABLET PO SCH (09:19)
[2018-09-19] MEDS: (Vitamin B Complex [Vitamin B Complex] 1 TAB) PO SCH (09:20)
[2018-09-19] MEDS ORDERED: METOPROLOL SUCCINATE 50 MG TABLET PO SCH (10:00)
--- NOTE | 2018-09-19 12:30 | DISCHARGE SUMMARY ---
"Discharge Summary Admit Date: 09/14/18 Discharge Date: 09/19/18 Discharging Provider: Eliana Patiño Primary Care Provider: Audelia Keen Code Status: Do Not Attempt Resuscitation Condition at Discharge: Stable Discharge Disposition: 03 SNF DC/Xfer - DIAGNOSES Admission Diagnoses: 1) Acute Kidney Injury 99/3.9 2) Fall 3) Volume depletion/ dehydration 4) Atrial fibrillation on anticoagulation (eliquis) 5) Normocytic anemia 6) COPD 7) Hypertension Discharge Diagnoses with Status of Each Condition: See details below under hospital course Acute kidney injury; resolved, likely multifactorial with volume depletion, ur inary retention from BPH and enterococcal UTI 2) Enterococcal UTI; ampicillin sensitive; Day 5 antibiotics continue 6 more days bid amoxicillin 500mg; consider recheck urine at completion 3) urinary retention Logan placed Flomax started Trial of logan removal by ~ this weekend 09/21 4) Atrial fibrillation was on metoprolol and calcium channel brayan see details below re; dose changes on Eliquis for stroke prevention - HPI History of Present Illness: Bladimir Curtis Sr. is a 88-year-old male resident of [facility] since June 2018, who per family has not been thriving there. He has lost between 10 and 20lbs since arriving there despite staff encouragement to attend meals/ and staff bringing him his meals to apartment. He had an unwitnessed fall, found next to his bed with an abrasion to his left forearm.. Patient recalled being on the ground, but he does not remember the fall itself. Denieds any injury to his head, headaches, neck pain, nausea or vomiting. Daughter in law was present for H/P and noted she visits him at [facility] after work each day and for the past 2-3 days his apartment has been a mess with diarrhea soiled depends in the sink, soiled carpeting, and the patient had been spending more and more time in bed with no motivation, lethargy, chills, and worsening mental status. Admit labs notable most notable for BUN/Cr of 99/ 3.9, U/A suggestive of UTI, and patient found to have urinary retention as well (~ 1000 cc). On exam, the patient is somewhat confused, a poor historian. - CONSULTS | PROCEDURES Consultations: social work, physical therapy Procedures: none - HOSPITAL COURSE Hospital Course: (1) Fall Impression: Unwitnessed fall at [facility] (cause of admit); likely mutifactorial, Acute kidney injury, UTI, possibly overcontrolled heart rate and BP (see below) Progressive weakness/ deconditioning, less motivation to be out of bed at [facility], ? diarrhea at [facility] Evaluated by PT and recommended SNF; Discharged to [facility] 09/20 Family concerned he may not be candidate for return to assisted living at [facility] 2) ARMIDA (acute kidney injury) Impression: Progressively improved with volume repletion and now resolved BUN/Cr 99/3.9>>82/2.6>>60/1.8>>48/1.6 1.5 on 09/19 (Was 1.02 Jun 2018) Possibly multifactorial;- prerenal (GI losses/diarrhea at [facility]) and was on ARB (irbesartan) AND obstructive with Left severe hydronephrosis on 09/15 u/s + response to volume repletion . May have had some component of obstructive renal failure No NSAids or other nephrotoxins Leave logan in place (just started Flomax); continue to hold ARB (on irbesartan 300 mg/day at home; 3) Urinary retention Impression: With Left hydronephrosis/ left hydroureter 09/15 Ultrasound Logan placed pm of 09/16 for retention ~ 1000cc. Continue logan/ trial removal end of week (at [facility]) continue Flomax (started this admission) (4)Enterococcal UTI Impression: Initially empirically started ceftriaxone changed to ampicillin when found to be ampicillin sensitive UTI change to amoxicillin on d/c (10 days) (ideally no logan w/ enterococcus BUT w/ retention and hydronephrosis, must leave in Started flomax 09/17 (5) Atrial fibrillation on Eliquis for stroke prevention Impression: Rate controlled Was on BOTH beta brayan and calcium channel brayan preadmit (50 bid metoprolol, and Dilt 120) On both agents, HR and BP seemed over controlled in this elderly gentleman Have stopped the cardizem continues on just metoprolol succinate 50 mg bid with reasonable rate control and blood pressure Titrate if indicated for HR / BP On Eliquis for Afib stroke prevention. 5) Acute metabolic encephalopathy Impression: related to volume depletion /much impoved 8 ) Hypertension on Irbesartan 300 at home, and BB, and CCB SBP ~ 100 on BB AND CCB for afib. BP leaves no room for ARB, (and held for ARMIDA) Hold Irbesartan.; as per #5 reducing BB dose,holding CCB (9) COPD (chronic obstructive pulmonary disease) Impression: 40 yrs tobacco on Advair/Qvar at home on [facility] formulary On 02 at admit/ on Room Air now w/ adequate Sa02 Resume home inhalers on dc (10) Normocytic anemia Impression: As above, H/H stable (and even improved w/ volume repletion) No s/s of active bleeding Iron studies in May (Ferritin 213, (11) Dementia/ ? Frailty syndrome Impression: Daughter confimrs symptoms of at least early dementia; ; poor STM, isolating behaviors, depression, poor appetite, weight loss, and loosing track of tasks easily. Imaging on admission show chronic white matter changes consistent with dementia. (12) Hypothyroidism Impression: Stable on home levothyroxine 150mcg daily, TSH here 3.24/ nl (13) Moderate protein-calorie malnutrition Impression: 3% wt loss in ~ 3 mos -reduced functional capacity and profound weakness, and appetite progressively worse. nutritional consult 09/16 Plan: Dietitian to follow, encourage PO intake, daily weights. Will check if supplements ordered Mild to moderate mitral regurgitation on Echo; tolerated IV fluid - ALLERGIES Allergies/Adverse Reactions: Allergies Allergy/AdvReac Type Severity Reaction Status Date / Time No Known Drug Allergies Allergy Verified 09/14/18 08:43 - MEDICATIONS Home Medications: Ambulatory Orders Medication Instructions Recorded Confirmed Apixaban [Eliquis] 5 mg PO DAILY 06/18/18 09/14/18 Folic Acid 1 mg PO DAILY 06/18/18 09/14/18 Simvastatin 40 mg PO QPM 06/18/18 09/14/18 Albuterol Sulfate [Albuterol 2 puffs INH Q6H PRN 09/14/18 09/14/18 Sulfate Hfa] Fluticasone/Salmeterol [Advair 1 puffs INH DAILY 09/14/18 09/14/18 500-50 Diskus] Levothyroxine Sodium 150 mcg PO QDAC 09/14/18 09/14/18 Metoprolol Succinate 50 mg PO BID 09/14/18 09/14/18 Sertraline HCl 25 mg PO DAILY 09/14/18 09/14/18 Vitamin B Complex 1 tab PO DAILY 09/14/18 09/14/18 Acetaminophen [Tylenol] 650 mg PO Q4HR PRN tablet 09/19/18 Amoxicillin 500 mg PO BID #12 capsule 09/19/18 Polyethylene Glycol 3350 [Miralax] 17 gm PO DAILY packet 09/19/18 Senna [Senokot] 8.6 - 17.2 mg PO DAILY tablet 09/19/18 Tamsulosin [Flomax] 0.4 mg PO DAILY #30 capsule 09/19/18 - PHYSICAL EXAM AT DISCHARGE General Appearance: positive: No acute distress, Alert, Other (Frail appearing tall edlerly gentleman lying in bed, easily aroused though) Eyes Bilateral: positive: EOMI, Other (wearing glasses) Respiratory: positive: Chest non-tender, No respiratory distress, Breath sounds nml Cardiovascular: positive: Regular rate & rhythm, Systolic murmur (2/6 LSB) Abdomen: positive: Nml bowel sounds, No distention, Other (Logan intact draining clear yellow urine) Skin: positive: Warm, Dry Extremities: positive: Non-tender. negative: Pedal edema Neurologic/Psychiatric: positive: Oriented x3, Mood/affect nml - LABS Result Diagrams: 09/17/18 05:45 09/19/18 05:55 - DIAGNOSTIC IMAGING Diagnostic Imaging Results Comments: Echocardiogram 09/14 Normal LV size and function EF 60-65%, AFib/ difficult to assess for wall motion abnormaliteis, severe increase Left atrial volume index , No AAS, moderate Aortic valve sclerosis (mild to moderate), mild to moderate mitral regurgitaion. RVSP 56 Pulmoanry hypertension; moderate REnal ultrasound; Severre left hydronephrossi and hydroureter; markedly thickened bladder wall Head CT 09/14; no acute finding, parenchymal volume loss and chronic white matter changes - SEPSIS Current Stage of Sepsis: Ruled out"
== END 2018-09-19 10:45 | DRG 689 ==
LOC: EDUNIT# → ED 08:33 → MS2 16:05
PROVIDERS: ADMIT Nurse Practitioner; ATTEND Nurse Practitioner
DX: N39.0 Urinary tract infection, site not specified (principal); G93.41 Metabolic encephalopathy; N30.00 Acute cystitis without hematuria; I48.91 Unspecified atrial fibrillation; N17.9 Acute kidney failure, unspecified; E44.0 Moderate protein-calorie malnutrition; B95.2 Enterococcus as the cause of diseases classified elsewhere; E86.0 Dehydration; N40.1 Benign prostatic hyperplasia with lower urinary tract symptoms; R33.8 Other retention of urine; N13.30 Unspecified hydronephrosis; I48.2 Chronic atrial fibrillation; I10 Essential (primary) hypertension; J44.9 Chronic obstructive pulmonary disease, unspecified; D64.9 Anemia, unspecified; F03.90 Unspecified dementia, unspecified severity, without behavioral disturbance, psychotic disturbance, mood disturbance, and anxiety; E03.9 Hypothyroidism, unspecified; I08.0 Rheumatic disorders of both mitral and aortic valves; S50.812A Abrasion of left forearm, initial encounter; W19.XXXA Unspecified fall, initial encounter; Y92.092 Bedroom in other non-institutional residence as the place of occurrence of the external cause; Z68.22 Body mass index [BMI] 22.0-22.9, adult; R35.0 Frequency of micturition; R35.1 Nocturia; F32.9 Major depressive disorder, single episode, unspecified; E78.00 Pure hypercholesterolemia, unspecified; I25.10 Atherosclerotic heart disease of native coronary artery without angina pectoris; I73.9 Peripheral vascular disease, unspecified; G62.9 Polyneuropathy, unspecified; R25.1 Tremor, unspecified; K21.9 Gastro-esophageal reflux disease without esophagitis; J32.9 Chronic sinusitis, unspecified; M19.90 Unspecified osteoarthritis, unspecified site; M81.0 Age-related osteoporosis without current pathological fracture; H54.7 Unspecified visual loss; H91.90 Unspecified hearing loss, unspecified ear; R29.6 Repeated falls; Z66 Do not resuscitate; Z79.51 Long term (current) use of inhaled steroids; Z79.01 Long term (current) use of anticoagulants; Z87.891 Personal history of nicotine dependence; Z86.73 Personal history of transient ischemic attack (TIA), and cerebral infarction without residual deficits
CPT/HCPCS: 36415; 70450; 76770; 80048; 80053; 81001; 81003; 82272; 82550; 83605; 83690; 83735; 83880; 84100; 84443; 84484; 85025; 87077; 87086; 87181; 93005; 93306; 94640; 94664; 96365; 96366; 99284; 99285